=== PATIENT | female | born 1995 | race American Indian/Alaskan Native ===

== ENCOUNTER 2018-05-20 00:09 | Emergency (ER) | payer SELFPAY ==
[2018-05-20] MEDS ORDERED: MOTRIN ONE (03:11)
[2018-05-20 03:29] VITALS: BP 123/79
[2018-05-20] MEDS ORDERED: MOTRIN PO ONE (03:30)
[2018-05-20] MEDS ORDERED: BICILLIN L-A IM ONE (05:03)
--- NOTE | 2018-05-20 05:05 | Emergency Department Report ---
ED ENT HPI - General Chief complaint: Sore Throat Stated complaint: SORE THROAT,TONSIL SWOLLEN Time Seen by Provider: 05/20/18 04:14 Source: patient Mode of arrival: Ambulatory Limitations: No Limitations - History of Present Illness Initial comments: 23-year-old -[place] female comes in complaining of sore throat and painful to the right neck 4 days. Patient denies any fever or chills but she does report a little bit of nausea and headache. Patient reports that she is taking [id number] Tylenol Motrin aspirin without any relief. Patient denies any past medical history besides congenital heart surgery. MD complaint: tooth pain -: days(s) (4) Location: throat Severity: severe Severity scale (0 -10): 8 Quality: burning, stabbing Consistency: constant Improves with: none Worsens with: swallowing Associated Symptoms: sore throat - Related Data Previous Rx's Medication Instructions Recorded Last Taken Type Ibuprofen [Motrin 600 MG tab] 600 mg PO Q8H PRN #15 tablet 05/20/18 Unknown Rx Allergies Allergy/AdvReac Type Severity Reaction Status Date / Time No Known Allergies Allergy Verified 05/20/18 03:31 ED Dental HPI - General Chief complaint: Sore Throat Stated complaint: SORE THROAT,TONSIL SWOLLEN Time Seen by Provider: 05/20/18 04:14 Source: patient Mode of arrival: Ambulatory Limitations: No Limitations - Related Data Previous Rx's Medication Instructions Recorded Last Taken Type Ibuprofen [Motrin 600 MG tab] 600 mg PO Q8H PRN #15 tablet 05/20/18 Unknown Rx Allergies Allergy/AdvReac Type Severity Reaction Status Date / Time No Known Allergies Allergy Verified 05/20/18 03:31 ED Review of Systems ROS: Stated complaint: SORE THROAT,TONSIL SWOLLEN Other details as noted in HPI Constitutional: denies: chills, fever Eyes: denies: eye pain, eye discharge, vision change ENT: throat pain Respiratory: denies: cough, shortness of breath, wheezing Cardiovascular: denies: chest pain, palpitations Gastrointestinal: denies: abdominal pain, nausea, diarrhea Genitourinary: denies: urgency, dysuria, discharge Neurological: headache ED Past Medical Hx - Past Medical History Additional medical history: Congenital Heart Disease - Surgical History Additional Surgical History: Congenital Heart Surgery - Social History Smoking Status: Never Smoker Substance Use Type: None, Marijuana - Medications Home Medications: Home Medications Medication Instructions Recorded Confirmed Last Taken Type Ibuprofen [Motrin 600 MG tab] 600 mg PO Q8H PRN #15 tablet 05/20/18 Unknown Rx ED Physical Exam - General Limitations: No Limitations General appearance: alert, in no apparent distress - Head Head exam: Present: atraumatic, normocephalic - Eye Eye exam: Present: EOMI - Expanded ENT Exam Expanded Throat exam: Positive: tonsillar erythema, tonsillomegaly, tonsillar exudate - Neck Neck exam: Present: tenderness, full ROM, lymphadenopathy - Respiratory Respiratory exam: Present: normal lung sounds bilaterally. Absent: respiratory distress - Cardiovascular Cardiovascular Exam: Present: regular rate, normal rhythm. Absent: systolic murmur, diastolic murmur, rubs, gallop - GI/Abdominal GI/Abdominal exam: Present: soft, normal bowel sounds ED Course Vital Signs 05/20/18 03:12 Temperature 98.7 F Pulse Rate 84 Respiratory 16 Rate Blood Pressure 123/79 O2 Sat by Pulse 97 Oximetry ED Medical Decision Making - Medical Decision Making Patient's been evaluated by this provider fast track. Patient has been given ibuprofen for pain management. Patient sent off for rapid strep which came back positive for group A strep. Discharge patient on ibuprofen Critical care attestation.: If time is entered above; I have spent that time in minutes in the direct care of this critically ill patient, excluding procedure time. ED Disposition Clinical Impression: Strep pharyngitis Disposition: DC-01 TO HOME OR SELFCARE Is pt being admited?: No Does the pt Need Aspirin: No Condition: Stable Instructions: Strep Throat (ED) Additional Instructions: Please increase her fluid intake by 1-2 L of fluid. Please take pain medication as needed. If her symptoms persist or gets worse please follow up with her primary care provider. Prescriptions: Ibuprofen [Motrin 600 MG tab] 600 mg PO Q8H PRN #15 tablet PRN Reason: Pain Referrals: PRIMARY CARE, [Primary Care Provider] - 3-5 Days Forms: Work/School Release Form(ED)
== END 2018-05-20 05:32 | disposition home or self-care (01) ==
LOC: ED 00:09
DX: J02.0 Streptococcal pharyngitis (principal); F12.10 Cannabis abuse, uncomplicated; R11.0 Nausea
CPT/HCPCS: 87430; 96372; 99283; J0561

== ENCOUNTER 2019-01-22 08:06 | Emergency (ER) | payer SELFPAY ==
[2019-01-22] MEDS ORDERED: ZOFRAN IV ONE (09:05)
[2019-01-22] MEDS ORDERED: MORPHINE IV ONE (09:05)
[2019-01-22] MEDS ORDERED: TORADOL IV ONE (09:05)
--- NOTE | 2019-01-22 09:09 | Emergency Department Report ---
ED Abdominal Pain HPI - General Chief Complaint: Abdominal Pain Stated Complaint: HEADACHE/STOMACH PAIN Time Seen by Provider: 01/22/19 09:01 Source: patient Mode of arrival: Ambulatory Limitations: No Limitations - History of Present Illness Initial Comments: Matilde is a 24 yo female who presents with periumbilical RLQ pain for 1-2 weeks. Persistent pain with nausea. Decreased appetite. LMP December 31 2018. Complaint: abdominal pain -: Gradual, week(s) (1-2) Location: periumbilical Radiation: RLQ Severity scale (0 -10): 7 Quality: sharp Consistency: constant Improves With: nothing Worsens With: nothing Associated Symptoms: nausea - Related Data LMP Date: 12/31/18 Previous Rx's Medication Instructions Recorded Last Taken Type Ibuprofen [Motrin 600 MG tab] 600 mg PO Q8H PRN #15 tablet 08/28/18 Unknown Rx traMADol [Ultram 50 MG tab] 50 mg PO Q6HR PRN #12 tablet 08/28/18 Unknown Rx metroNIDAZOLE [Metronidazole] 500 mg PO BID #14 tablet 09/19/18 Unknown Rx Ibuprofen 800 mg PO QID PRN #15 tablet 01/22/19 Unknown Rx Promethazine [Phenergan TAB] 25 mg PO Q6HR PRN #10 tab 01/22/19 Unknown Rx Allergies Allergy/AdvReac Type Severity Reaction Status Date / Time No Known Allergies Allergy Verified 01/22/19 08:08 ED Review of Systems ROS: Stated complaint: HEADACHE/STOMACH PAIN Other details as noted in HPI Comment: All other systems reviewed and negative Constitutional: malaise. denies: fever Gastrointestinal: abdominal pain, nausea ED Past Medical Hx - Past Medical History Previous Medical History?: Yes Additional medical history: Congenital Heart Disease - Surgical History Past Surgical History?: Yes Additional Surgical History: Congenital Heart Surgery - Social History Smoking Status: Never Smoker Substance Use Type: Marijuana - Medications Home Medications: Home Medications Medication Instructions Recorded Confirmed Last Taken Type Ibuprofen [Motrin 600 MG tab] 600 mg PO Q8H PRN #15 tablet 08/28/18 Unknown Rx traMADol [Ultram 50 MG tab] 50 mg PO Q6HR PRN #12 tablet 08/28/18 Unknown Rx metroNIDAZOLE [Metronidazole] 500 mg PO BID #14 tablet 09/19/18 Unknown Rx Ibuprofen 800 mg PO QID PRN #15 tablet 01/22/19 Unknown Rx Promethazine [Phenergan TAB] 25 mg PO Q6HR PRN #10 tab 01/22/19 Unknown Rx ED Physical Exam - General Limitations: No Limitations General appearance: alert, in no apparent distress - Head Head exam: Present: atraumatic, normocephalic - Eye Eye exam: Present: normal appearance - ENT ENT exam: Present: mucous membranes moist - Neck Neck exam: Present: normal inspection, full ROM. Absent: meningismus - Respiratory Respiratory exam: Present: normal lung sounds bilaterally. Absent: respiratory distress, wheezes, rales, rhonchi - Cardiovascular Cardiovascular Exam: Present: regular rate, normal rhythm, normal heart sounds. Absent: systolic murmur, diastolic murmur, rubs, gallop - GI/Abdominal GI/Abdominal exam: Present: soft, tenderness (right lower quadrant), guarding (voluntary), normal bowel sounds. Absent: distended, rebound, rigid - Extremities Exam Extremities exam: Present: normal inspection - Back Exam Back exam: Present: normal inspection - Neurological Exam Neurological exam: Present: alert, oriented X3 - Psychiatric Psychiatric exam: Present: normal affect, normal mood - Skin Skin exam: Present: warm, dry, intact, normal color. Absent: rash ED Course Vital Signs 01/22/19 01/22/19 01/22/19 08:08 09:54 09:57 Temperature 98.2 F Pulse Rate 84 Respiratory 20 17 17 Rate Blood Pressure 159/103 O2 Sat by Pulse 98 Oximetry 01/22/19 09:59 Temperature Pulse Rate Respiratory 16 Rate Blood Pressure O2 Sat by Pulse Oximetry ED Medical Decision Making - Lab Data Result diagrams: 01/22/19 09:14 01/22/19 09:14 - Medical Decision Making Ms. Mckeon is a healthy female who presents with periumbilical and right lower quadrant abdominal pain. According to EMR, Pelvic and transvaginal ultrasound revealed 2 complex ovarian right-sided cyst. CT abdomen and pelvis negative for acute process. Referred to [facility]AL[facility] DIRECTOR. Refer to outside clinic. CBC chemistry within normal limits. Serum test negative ms. Mckeon is also concerned for persistent nausea. She has smoked marijuana daily for the past. I explained the risks and possibility of cannabinoid hyperemesis syndrome. Prescriptions provided for ibuprofen and promethazine Critical care attestation.: If time is entered above; I have spent that time in minutes in the direct care of this critically ill patient, excluding procedure time. ED Disposition Clinical Impression: Ovarian cyst, Abdominal pain Disposition: TO HOME OR SELFCARE Is pt being admited?: No Does the pt Need Aspirin: No Condition: Stable Instructions: Ovarian Cyst (ED), Abdominal Pain (ED) Prescriptions: Ibuprofen 800 mg PO QID PRN #15 tablet PRN Reason: Pain , Severe (7-10) Promethazine [Phenergan TAB] 25 mg PO Q6HR PRN #10 tab PRN Reason: Nausea Referrals: DOMINIC MATHEWS MD [Primary Care Provider] - 3-5 Days RUBY CONNOR MD [Staff Physician] - 3-5 Days Forms: Work/School Release Form(ED)
[2019-01-22 09:30] LABS: Hematocrit 39.8 % (30.3-42.9); Hemoglobin 13.5 gm/dl (10.1-14.3); Mean Corpuscular HGB Conc 34 % (30-34); Mean Corpuscular Volume 92 fl (79-97); Platelet Count 141 K/mm3 (140-440); Red Blood Count 4.35 M/mm3 (3.65-5.03); Red Cell Distribution Width 13.9 % (13.2-15.2)
[2019-01-22 10:02] LABS: Alanine Aminotransferase 11 units/L (7-56); Albumin 4.1 g/dL (3.9-5); BUN/Creatinine Ratio 22; Blood Urea Nitrogen 13 mg/dL (7-17); Calcium 8.9 mg/dL (8.4-10.2); Hemolysis Index 17
[2019-01-22 10:07] LABS: Bilirubin,Direct < 0.2 mg/dL (0-0.2)
[2019-01-22 10:50] LABS: Basophils % (Manual) 0 % (0.0-1.8); Total Cells Counted 100
[2019-01-22 10:51] LABS: Anisocytosis Few; Large Platelets Rare; Platelet Estimate Consistent w Auto; Poikilocytosis Few
--- NOTE | 2019-01-22 11:55 | Cat Scan Report ---
CT ABDOMEN PELVIS WITH CONTRAST: HISTORY: Periumbilical pain, right lower quadrant tenderness. COMPARISON: none. TECHNIQUE: Helical CT in 1.25mm intervals following IV contrast. Sagittal and coronal reconstructions. FINDINGS: Lung bases: The visualized lung bases are adequately aerated. Only the inferior half of the heart is included this exam but there appears to be dextrocardia. An epicardial lead is identified along the left side of the heart. Please correlate with the patient's history. Liver: The liver demonstrates a heterogeneous density with mild diffuse fatty change. There is a 1 cm focus of enhancement in the anterior left hepatic lobe on image 64, series 3. This area is isodense on the delayed images suggesting type I enhancement pattern of a cavernous hemangioma. Biliary system: Normal. Pancreas: Normal. Spleen: Normal. Kidneys/ureters/bladder: Normal. Adrenal glands: Normal. Aorta: Normal. Intestines: Within normal limits given no oral contrast was administered. Appendix: Normal. Pelvic viscera: A 2.5 cm peripherally enhancing cyst is identified in the right ovary. The uterus and left ovary are unremarkable. Ascites: Trace pelvic ascites which appears physiologic for a female patient. Adenopathy: None. Musculoskeletal: Normal. IMPRESSION: 2.5 cm right ovarian cyst. No evidence for acute appendicitis. Dextrocardia? Mild hepatic steatosis. Tiny cavernous hemangioma in the left hepatic lobe.
[2019-01-22 12:39] VITALS: BP 120/80
== END 2019-01-22 12:38 | disposition home or self-care (01) ==
LOC: ED 08:06
DX: N83.201 Unspecified ovarian cyst, right side (principal); F12.10 Cannabis abuse, uncomplicated
CPT/HCPCS: 36415; 74177; 80048; 80076; 83690; 84703; 85007; 85025; 96374; 96375; 99284; J1885; J2270; J2405; Q9967

== ENCOUNTER 2020-06-02 05:28 | Emergency (ER) | payer SELFPAY ==
[2020-06-02 06:42] LABS: Basophils % (Auto) 0.6 % (0.0-1.8); Eosinophils # (Auto) 0.3 K/mm3 (0.0-0.4); Eosinophils % (Auto) 5.2 % (0.0-4.3); Hematocrit 42.8 % (30.3-42.9); Lymphocytes # (Auto) 1.8 K/mm3 (1.2-5.4); Lymphocytes % (Auto) 33.5 % (13.4-35.0); Mean Corpuscular HGB Conc 33 % (30-34); Mean Corpuscular Volume 92 fl (79-97); Monocytes # (Auto) 0.4 K/mm3 (0.0-0.8); Monocytes % (Auto) 7.1 % (0.0-7.3); Platelet Count 175 K/mm3 (140-440); Red Blood Count 4.64 M/mm3 (3.65-5.03)
[2020-06-02 06:42] LABS: Bilirubin,Urine NEG (Negative); Blood,Urine LG (Negative); Color,Urine Yellow (Yellow); Mucus,Urine 3+ /HPF
[2020-06-02 06:43] LABS: Alanine Aminotransferase 10 units/L (7-56); Albumin 4.3 g/dL (3.9-5); BUN/Creatinine Ratio 15; Blood Urea Nitrogen 12 mg/dL (7-17); Calcium 9.2 mg/dL (8.4-10.2); Hemolysis Index 7
[2020-06-02 06:48] LABS: RBC,Urine > 182.0 /HPF (0.0-6.0)
[2020-06-02 06:50] LABS: HCG Qualitative,Urine Negative (Negative)
--- NOTE | 2020-06-02 10:44 | Emergency Department Report ---
ED Female HPI - General Chief complaint: Abdominal Pain Stated complaint: NAUSEA, ABDOMINAL PAIN Time Seen by Provider: 06/02/20 10:31 Source: patient Mode of arrival: Ambulatory Limitations: No Limitations - History of Present Illness Initial comments: 25-year-old -Citizen Of [place] female presents to the emergency room complaining of diffuse abdominal pain and nausea times a few weeks. Patient admits to urinary frequency and urgency. She was concerned that her menstrual period was light as she is only needing a panty liner. Patient denies any dysuria admits that she is drinking fluids such as water. She does complain of constipation at times. She admits that she smokes weed. Denies any fever or chills. MD Complaint: pelvic pain Onset/Timin -: week(s) Location: suprapubic Severity scale (0 -10): 6 Quality: sharp Consistency: intermittent Improves with: none Worsens with: none Are you Now?: No Associated Symptoms: nausea/vomiting (No vomiting), loss of appetite, other (Urinary frequency and urgency). denies: fever/chills - Related Data Sexually active: Yes : 0 Previous Rx's Medication Instructions Recorded Last Taken Type Ibuprofen [Motrin 600 MG tab] 600 mg PO Q8H PRN #15 tablet 08/28/18 Unknown Rx traMADoL [Ultram 50 MG tab] 50 mg PO Q6HR PRN #12 tablet 08/28/18 Unknown Rx metroNIDAZOLE [Metronidazole] 500 mg PO BID #14 tablet 09/19/18 Unknown Rx Ibuprofen [Ibuprofen 800] 800 mg PO QID PRN #15 tablet 01/22/19 Unknown Rx Promethazine [Phenergan] 25 mg PO Q6HR PRN #10 tab 01/22/19 Unknown Rx Acetaminophen [Acetaminophen TAB] 1,000 mg PO Q6HR PRN #30 tablet 10/12/19 Unknown Rx Fluticasone [Flonase] 1 spray NS QDAY #1 bottle 10/12/19 Unknown Rx Loratadine 10 mg PO DAILY #30 tablet 10/12/19 Unknown Rx Nitrofurantoin [place]/M-Cryst 100 mg PO Q12HR 7 Days #14 capsule 06/02/20 Unknown Rx [Macrobid CAP] Allergies Allergy/AdvReac Type Severity Reaction Status Date / Time No Known Allergies Allergy Verified 10/12/19 14:41 ED Review of Systems ROS: Stated complaint: NAUSEA, ABDOMINAL PAIN Other details as noted in HPI Comment: All other systems reviewed and negative ED Past Medical Hx - Past Medical History Previous Medical History?: Yes Additional medical history: Congenital Heart Disease - Surgical History Past Surgical History?: Yes Additional Surgical History: Congenital Heart Surgery - Social History Smoking Status: Never Smoker Substance Use Type: Marijuana - Medications Home Medications: Home Medications Medication Instructions Recorded Confirmed Last Taken Type Ibuprofen [Motrin 600 MG tab] 600 mg PO Q8H PRN #15 tablet 08/28/18 Unknown Rx traMADoL [Ultram 50 MG tab] 50 mg PO Q6HR PRN #12 tablet 08/28/18 Unknown Rx metroNIDAZOLE [Metronidazole] 500 mg PO BID #14 tablet 09/19/18 Unknown Rx Ibuprofen [Ibuprofen 800] 800 mg PO QID PRN #15 tablet 01/22/19 Unknown Rx Promethazine [Phenergan] 25 mg PO Q6HR PRN #10 tab 01/22/19 Unknown Rx Acetaminophen [Acetaminophen TAB] 1,000 mg PO Q6HR PRN #30 tablet 10/12/19 Unknown Rx Fluticasone [Flonase] 1 spray NS QDAY #1 bottle 10/12/19 Unknown Rx Loratadine 10 mg PO DAILY #30 tablet 10/12/19 Unknown Rx Nitrofurantoin [place]/M-Cryst 100 mg PO Q12HR 7 Days #14 capsule 06/02/20 Unknown Rx [Macrobid CAP] ED Physical Exam - General Limitations: No Limitations General appearance: alert, in no apparent distress, other (Nontoxic in appearance) - Head Head exam: Present: atraumatic, normocephalic - Eye Eye exam: Present: normal appearance - ENT ENT exam: Present: mucous membranes moist - Neck Neck exam: Present: normal inspection - Respiratory Respiratory exam: Present: normal lung sounds bilaterally. Absent: respiratory distress - Cardiovascular Cardiovascular Exam: Present: regular rate, normal rhythm. Absent: systolic murmur, diastolic murmur, rubs, gallop - GI/Abdominal GI/Abdominal exam: Present: soft, normal bowel sounds. Absent: distended, tenderness - Extremities Exam Extremities exam: Present: normal inspection, full ROM - Back Exam Back exam: Present: normal inspection - Neurological Exam Neurological exam: Present: alert, oriented X3, normal gait - Psychiatric Psychiatric exam: Present: normal affect, normal mood - Skin Skin exam: Present: warm, dry, intact, normal color. Absent: rash ED Medical Decision Making - Lab Data Result diagrams: 06/02/20 05:39 06/02/20 05:39 - Medical Decision Making 25-year-old -Citizen Of [place] female presents to the emergency room complaining of diffuse abdominal pain and nausea times a few weeks. Patient admits to urin phil frequency and urgency. She was concerned that her menstrual period was light as she is only needing a panty liner. Patient denies any dysuria admits that she is drinking fluids such as water. She does complain of constipation at times. She admits that she smokes weed. Denies any fever or chills. Patient's urine shows that she has a urinary tract infection. Patient is normal appearance nontoxic. Lying comfortably. We will treat her with Macrobid discussed with her that smoking also can cause abdominal pain with nausea. Recommend to increase her fluid intake and to complete all her antibiotics. Critical care attestation.: If time is entered above; I have spent that time in minutes in the direct care of this critically ill patient, excluding procedure time. ED Disposition Clinical Impression: UTI (urinary tract infection) Disposition: DC-01 TO HOME OR SELFCARE Is pt being admited?: No Does the pt Need Aspirin: No Condition: Stable Instructions: Abdominal Pain (ED) Additional Instructions: Please complete antibiotics as prescribed. Follow-up with a [facility] [employer] or primary care provider. Tylenol or ibuprofen as needed for pain management. Prescriptions: Nitrofurantoin [place]/M-Cryst [Macrobid CAP] 100 mg PO Q12HR 7 Days #14 capsule Referrals: PRIMARY CAREMD [Primary Care Provider] - 3-5 Days [facility] [Provider Group] - 3-5 Days Forms: Work/School Release Form(ED)
[2020-06-02 10:59] VITALS: BP 128/96
== END 2020-06-02 10:56 | disposition home or self-care (01) ==
LOC: ED 05:28
DX: N39.0 Urinary tract infection, site not specified (principal); F12.10 Cannabis abuse, uncomplicated; Z79.899 Other long term (current) drug therapy
CPT/HCPCS: 36415; 80053; 81001; 81025; 85025; 87086; 99283

== ENCOUNTER 2020-10-21 20:33 | Emergency (ER) | payer SELFPAY ==
[2020-10-21] MEDS ORDERED: LIDOCAINE-MPF (1%) 10 MG/1 ML VIAL 5 ML INFILTRATI ONE (21:00)
[2020-10-21 21:01] VITALS: BP 101/71
[2020-10-21] MEDS ORDERED: traMADol 50 MG TAB PO ONE (21:01)
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
[2020-10-21] MEDS ORDERED: ACETAMINOPHEN 500 MG TAB PO ONE (21:47)
== END 2020-10-21 22:23 | disposition home or self-care (01) ==
LOC: ED 20:33
DX: S46.912A Strain of unspecified muscle, fascia and tendon at shoulder and upper arm level, left arm, initial encounter (principal); S46.911A Strain of unspecified muscle, fascia and tendon at shoulder and upper arm level, right arm, initial encounter; S09.90XA Unspecified injury of head, initial encounter; F17.200 Nicotine dependence, unspecified, uncomplicated; Z79.899 Other long term (current) drug therapy; V49.59XA Passenger injured in collision with other motor vehicles in traffic accident, initial encounter; Y93.89 Activity, other specified; Y92.488 Other paved roadways as the place of occurrence of the external cause; Y99.8 Other external cause status
CPT/HCPCS: 99282

== ENCOUNTER 2021-03-26 17:34 | Emergency (ER) | payer SELFPAY ==
[2021-03-26 18:01] VITALS: BP 116/81
== END 2021-03-27 07:00 | disposition left against medical advice (07) ==
LOC: ED 17:34
DX: R51.9 Headache, unspecified (principal); Z53.21 Procedure and treatment not carried out due to patient leaving prior to being seen by health care provider

== ENCOUNTER 2021-03-27 17:08 | Emergency (ER) | payer SELFPAY ==
[2021-03-27 19:29] VITALS: BP 121/79
--- NOTE | 2021-03-27 19:37 | Emergency Department Report ---
Chief Complaint: Abdominal Pain Stated Complaint: STOMACH PAIN/HEADACHE/SOB/PANIC ATTACK Time Seen by Provider: 03/27/21 19:31 - HPI History of Present Illness: 26-year-old -[place] female patient without significant past medical history presents with complaints of intermittent upper abdominal discomfort, burning, and nausea for the past 2 years. Patient states her symptoms have been worsening over the past few days after drinking heavy amount of tequila. She denies any vomiting, diarrhea, melena/hematochezia, fever/chills/sweats, chest pain, or shortness of breath. She states her pain is currently mild and rates it as a 2/10 in severity. She describes it as gnawing and burning. Patient states her symptoms improved with refraining from spicy foods. She states that she has been seen in the past for the same issue, however she has never followed up with a GI specialist. - Exam Vital Signs: Vital Signs 03/27/21 19:28 Temperature 97.8 F Pulse Rate 94 H Respiratory 16 Rate Blood Pressure 121/79 O2 Sat by Pulse 95 Oximetry MSE screening note: Focused history and physical exam performed. Due to findings the following was ordered: ED Medical Decision Making - Medical Decision Making History and physical appear to be consistent with GERD/gastritis. Recommend follow-up with GI for further evaluation. Patient to try OTC Pepcid twice daily. Her vitals are normal, she is well-appearing, she is stable for discharge home. Discussed signs and symptoms that should prompt immediate return to the emergency department in detail patient verbalized understanding. ED Disposition for MSE Clinical Impression: Gastritis Disposition: Z-07 MED SCREENING EXAM-LEFT Is pt being admited?: No Condition: Stable Instructions: Gastritis, Adult, Food Choices for Gastroesophageal Reflux Disease, Adult, Gastroesophageal Reflux Disease, Adult, Abdominal Pain (ED) Additional Instructions: Pepcid (famotidine) Omeprazole Referrals: [facility] [Provider Group] - 3-5 Days [facility] [Provider Group] - 3-5 Days Forms: Work/School Release Form(ED) ED Physical Exam - General Limitations: No Limitations General appearance: alert, in no apparent distress - Head Head exam: Present: atraumatic, normocephalic - Eye Eye exam: Present: normal appearance. Absent: scleral icterus - Respiratory Respiratory exam: Present: normal lung sounds bilaterally. Absent: respiratory distress - Cardiovascular Cardiovascular Exam: Present: regular rate, normal rhythm. Absent: systolic murmur, diastolic murmur, rubs, gallop - GI/Abdominal GI/Abdominal exam: Present: soft, normal bowel sounds. Absent: distended, tenderness, guarding, rebound, rigid - Neurological Exam Neurological exam: Present: alert, oriented X3 - Psychiatric Psychiatric exam: Present: normal affect, normal mood - Skin Skin exam: Present: warm, dry, intact, normal color. Absent: rash, cyanosis, diaphoretic ED Review of Systems ROS: Stated complaint: STOMACH PAIN/HEADACHE/SOB/PANIC ATTACK Other details as noted in HPI Constitutional: denies: chills, diaphoresis, fever, malaise, weakness Respiratory: denies: cough Cardiovascular: denies: chest pain Gastrointestinal: abdominal pain, nausea. denies: vomiting, diarrhea, constipation, hematemesis, melena, hematochezia Skin: denies: change in color Hematological/Lymphatic: denies: easy bruising
== END 2021-03-27 19:40 | disposition left against medical advice (07) ==
LOC: ED 17:08
DX: K29.70 Gastritis, unspecified, without bleeding (principal); Z53.21 Procedure and treatment not carried out due to patient leaving prior to being seen by health care provider

== ENCOUNTER 2021-07-02 09:47 | Emergency (ER) | payer SELFPAY ==
--- NOTE | 2021-07-02 10:37 | Emergency Department Report ---
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 Patient states that her symptoms started around 1 AM this morning. She states that she vomited multiple times this morning. Emesis was mainly liquid and food. She denies any hematemesis or coffee-ground emesis. She also had multiple episodes of diarrhea this morning but the last time she had diarrhea was 3 AM. She denies any hematochezia, melena mucus in her diarrhea. She reports upper abdominal pain which has since improved since it started. She denies any associated fever. She denies any UTI symptoms or abnormal vaginal symptoms. She denies any recent antibiotic use, recent travel, ill contacts or obvious bad food intake. Her last menstrual cycle was 2 weeks ago. She is not currently on control. She smokes cigarettes and marijuana but denies any other illicit drugs. She denies alcohol abuse. She denies any history of abdominal surgeries. MD complaint: nausea, vomiting, diarrhea, abdominal pain -: This morning (about 1 am this morning ) - Related Data Previous Rx's Medication Instructions Recorded Last Taken Type Ibuprofen [Motrin 600 MG tab] 600 mg PO Q8H PRN #15 tablet 08/28/18 Unknown Rx Ibuprofen [Ibuprofen 800] 800 mg PO QID PRN #15 tablet 01/22/19 Unknown Rx Acetaminophen [Acetaminophen TAB] 1,000 mg PO Q6HR PRN #30 tablet 10/21/20 Unknown Rx methOCARBAMOL [Robaxin TAB] 750 mg PO Q8H PRN #30 tablet 10/21/20 Unknown Rx Famotidine [Pepcid] 20 mg PO BID #30 tablet 07/02/21 Unknown Rx Hyoscyamine Subl [Levsin Sl 0.125 0.125 mg SL Q6HR PRN #20 tab 07/02/21 Unknown Rx TAB] Ondansetron [Zofran Odt] 4 mg PO Q8HR PRN #15 tab.rapdis 07/02/21 Unknown Rx Allergies Allergy/AdvReac Type Severity Reaction Status Date / Time No Known Allergies Allergy Verified 10/12/19 14:41 ED Review of Systems ROS: Stated complaint: VOMITING,DIAHRREA, STOMACH PAIN Other details as noted in HPI Comment: All other systems reviewed and negative Constitutional: denies: chills, fever Eyes: denies: eye pain, eye discharge, vision change ENT: denies: ear pain, throat pain Respiratory: denies: cough, shortness of breath, SOB with exertion, SOB at rest, wheezing Cardiovascular: denies: chest pain, palpitations, dyspnea on exertion, edema, syncope, paroxysmal nocturnal dyspnea Gastrointestinal: abdominal pain, nausea, vomiting, diarrhea. denies: constipation, hematemesis, melena, hematochezia Genitourinary: denies: urgency, dysuria, frequency, hematuria, discharge, abnormal menses, dyspareunia Musculoskeletal: denies: back pain, joint swelling, arthralgia, myalgia Skin: denies: rash, lesions, change in color, pruritus Neurological: denies: headache, weakness, numbness, paresthesias, confusion, abnormal gait, vertigo Psychiatric: denies: anxiety, depression, auditory hallucinations, visual hallucinations, homicidal thoughts, suicidal thoughts Hematological/Lymphatic: denies: easy bleeding, easy bruising ED Past Medical Hx - Past Medical History Hx GERD: Yes Additional medical history: Congenital Heart Disease - Surgical History Additional Surgical History: Congenital Heart Surgery - Social History Smoking Status: Never Smoker - Medications Home Medications: Home Medications Medication Instructions Recorded Confirmed Last Taken Type Ibuprofen [Motrin 600 MG tab] 600 mg PO Q8H PRN #15 tablet 08/28/18 Unknown Rx Ibuprofen [Ibuprofen 800] 800 mg PO QID PRN #15 tablet 01/22/19 Unknown Rx Acetaminophen [Acetaminophen TAB] 1,000 mg PO Q6HR PRN #30 tablet 10/21/20 Unknown Rx methOCARBAMOL [Robaxin TAB] 750 mg PO Q8H PRN #30 tablet 10/21/20 Unknown Rx Famotidine [Pepcid] 20 mg PO BID #30 tablet 07/02/21 Unknown Rx Hyoscyamine Subl [Levsin Sl 0.125 0.125 mg SL Q6HR PRN #20 tab 07/02/21 Unknown Rx TAB] Ondansetron [Zofran Odt] 4 mg PO Q8HR PRN #15 tab.rapdis 07/02/21 Unknown Rx ED Physical Exam - General General appearance: alert, in no apparent distress - Head Head exam: Present: atraumatic, normocephalic, normal inspection - Eye Eye exam: Present: normal appearance, PERRL, EOMI Pupils: Present: normal accommodation - ENT ENT exam: Present: normal exam, mucous membranes moist, TM's normal bilaterally - Neck Neck exam: Present: normal inspection, full ROM - Respiratory Respiratory exam: Present: normal lung sounds bilaterally. Absent: respiratory distress, wheezes, rales, rhonchi - Cardiovascular Cardiovascular Exam: Present: regular rate, normal rhythm, normal heart sounds - GI/Abdominal GI/Abdominal exam: Present: soft, tenderness (Epigastric ), guarding (mild, epigastric ). Absent: distended - Neurological Exam Neurological exam: Present: alert, oriented X3, CN II-XII intact, normal gait - Psychiatric Psychiatric exam: Present: normal affect, normal mood - Skin Skin exam: Present: intact ED Course Vital Signs 07/02/21 07/02/21 10:49 12:56 Temperature 98.7 F Pulse Rate 81 80 Respiratory 16 18 Rate Blood Pressure 107/79 105/71 [Left] O2 Sat by Pulse 95 95 Oximetry ED Medical Decision Making - Lab Data Result diagrams: 07/02/21 11:30 07/02/21 11:30 - Medical Decision Making 1241: Patient reports feeling much better after IV fluids, and IV meds. She was able to tolerate p.o. fluids without any vomiting. Repeat abdominal exam shows soft nontender abdomen. Patient currently not toxic or ill-appearing. She is neurologically intact. Suspect gastroenteritis at this time. All labs reviewed and unremarkable. Her exam, diagnostic testing and current condition do not suggest acute appendicitis, bowel obstruction, acute cholecystitis, bowel perforation, , severe diverticulitis, sepsis or other significant pathology to warrant further testing, continued ED treatment, admission or surgical evaluation at this point. Discussed suspected diagnosis and treatment plan with patient. She expressed understanding of all instructions and agree with plan. Patient was stable at time of discharge. Critical care attestation.: If time is entered above; I have spent that time in minutes in the direct care of this critically ill patient, excluding procedure time. ED Disposition Clinical Impression: Gastroenteritis, Epigastric pain Disposition: HOME / SELF CARE / HOMELESS Is pt being admited?: No Does the pt Need Aspirin: No Condition: Stable Instructions: Viral Gastroenteritis, Adult, [id number], Abdominal Pain, A dult, [id number], [place] Diet Additional Instructions: Recommend that you take the Pepcid and the Zofran and the levsin as prescribed. Recommend that you do a bland diet for the rest of the day. Recommend that you continue drinking lots of fluids. Follow-up closely with your primary care doctor. Return to the ER if your symptoms changes or worsens in any way. Prescriptions: Hyoscyamine Subl [Levsin Sl 0.125 TAB] 0.125 mg SL Q6HR PRN #20 tab PRN Reason: Abdominal pain Famotidine [Pepcid] 20 mg PO BID #30 tablet Ondansetron [Zofran Odt] 4 mg PO Q8HR PRN #15 tab.rapdis PRN Reason: Nausea vomiting Referrals: PRIMARY CARE,MD [Primary Care Provider] - 3-5 Days [facility] [Provider Group] - 3-5 Days Forms: Work/School Release Form(ED) Time of Disposition: 12:44
[2021-07-02] MEDS ORDERED: SODIUM CHLORIDE 0.9% 1000 ML 1,000 ML IV ONE (10:40)
[2021-07-02] MEDS ORDERED: ONDANSETRON 4 MG/2 ML INJ IV ONE (10:40)
[2021-07-02] MEDS ORDERED: HYOSCYAMINE SUBL 0.125 MG TAB SL ONE (10:41)
[2021-07-02] MEDS ORDERED: FAMOTIDINE 20 MG TAB PO ONE (10:41)
[2021-07-02 11:42] LABS: Bacteria,Urine 1+ /HPF (Negative); Bilirubin,Urine NEG (Negative); Blood,Urine NEG (Negative); Color,Urine Yellow (Yellow); Mucus,Urine 1+ /HPF; Protein,Urine <15 mg/dL mg/dL (Negative)
[2021-07-02 11:47] LABS: Basophils % (Auto) 0.4 % (0.0-1.8); Eosinophils # (Auto) 0.2 K/mm3 (0.0-0.4); Eosinophils % (Auto) 2.7 % (0.0-4.3); Hematocrit 40.9 % (30.3-42.9); Hemoglobin 13.6 gm/dl (10.1-14.3); Lymphocytes # (Auto) 1.3 K/mm3 (1.2-5.4); Lymphocytes % (Auto) 23.3 % (13.4-35.0); Mean Corpuscular HGB Conc 33 % (30-34); Mean Corpuscular Volume 91 fl (79-97); Monocytes # (Auto) 0.5 K/mm3 (0.0-0.8); Monocytes % (Auto) 9.1 % (0.0-7.3); Platelet Count 161 K/mm3 (140-440); Red Cell Distribution Width 13.5 % (13.2-15.2)
[2021-07-02 11:51] LABS: HCG Qualitative,Urine Negative (Negative)
[2021-07-02 12:01] LABS: Alanine Aminotransferase 12 units/L (7-56); Albumin 4.2 g/dL (3.9-5); Blood Urea Nitrogen 15 mg/dL (7-17); Calcium 8.7 mg/dL (8.4-10.2); Hemolysis Index 4
[2021-07-02 12:12] LABS: BUN/Creatinine Ratio 25
[2021-07-02 12:56] VITALS: BP 105/71
== END 2021-07-02 12:56 | disposition home or self-care (01) ==
LOC: ED 09:47
DX: K52.9 Noninfective gastroenteritis and colitis, unspecified (principal); K21.9 Gastro-esophageal reflux disease without esophagitis
CPT/HCPCS: 36415; 80053; 81001; 81025; 83690; 85025; 96361; 96374; 99283; J2405; J7030

== ENCOUNTER 2021-07-25 00:07 | Emergency (ER) | payer SELFPAY ==
[2021-07-25 00:29] VITALS: BP 118/84
--- NOTE | 2021-07-25 01:00 | Emergency Department Report ---
ED General Adult HPI - General Chief complaint: Headache Stated complaint: HEADACHES PUI?: No Source: patient Mode of arrival: Ambulatory Limitations: No Limitations - History of Present Illness Initial comments: Patient is a 26-year-old -[place] female with a history of congenital heart disease and GERD who presents to the ED with complaint of acute onset persistent nasal and sinus congestion, frontal sinus pressure and headache, sore throat for the last 2 days. Patient states that she has not been able to sleep because of worsening frontal sinus pressure and headache as well as sore throat. Patient denies fever, chills, nausea, vomiting, chest pain, shortness of breath, cough, dizziness, syncope, abdominal pain, diarrhea, dizziness or syncope. MD Complaint: Sore throat, frontal headache; nasal and sinus congestion -: Sudden, days(s) (2) Location: head, mouth Radiation: non-radiation Severity scale (0 -10): 5 Quality: aching Consistency: constant Improves with: none Worsens with: none Associated Symptoms: denies other symptoms, headaches. denies: confusion, chest pain, cough, diaphoresis, fever/chills, loss of appetite, malaise, nausea/vomiting, rash, seizure, shortness of breath, syncope, weakness Treatments Prior to Arrival: none - Related Data Previous Rx's Medication Instructions Recorded Last Taken Type Ibuprofen [Motrin 600 MG tab] 600 mg PO Q8H PRN #15 tablet 08/28/18 Unknown Rx Ibuprofen [Ibuprofen 800] 800 mg PO QID PRN #15 tablet 01/22/19 Unknown Rx Acetaminophen [Acetaminophen TAB] 1,000 mg PO Q6HR PRN #30 tablet 10/21/20 Unknown Rx methOCARBAMOL [Robaxin TAB] 750 mg PO Q8H PRN #30 tablet 10/21/20 Unknown Rx Famotidine [Pepcid] 20 mg PO BID #30 tablet 07/02/21 Unknown Rx Hyoscyamine Subl [Levsin Sl 0.125 0.125 mg SL Q6HR PRN #20 tab 07/02/21 Unknown Rx TAB] Ondansetron [Zofran Odt] 4 mg PO Q8HR PRN #15 tab.rapdis 07/02/21 Unknown Rx Amoxicillin [Amoxicillin TAB] 875 mg PO Q12H #20 tablet 07/25/21 Unknown Rx Cetirizine HCl [Zyrtec 10mg tab] 10 mg PO DAILY #30 tablet 07/25/21 Unknown Rx Ibuprofen [Motrin] 600 mg PO Q8H PRN #30 tablet 07/25/21 Unknown Rx Lidocaine Viscous 2% 10 ml PO Q6H PRN #100 ml 07/25/21 Unknown Rx Ondansetron [Zofran Odt] 4 mg PO Q6HR PRN #15 tab.rapdis 07/25/21 Unknown Rx Allergies Allergy/AdvReac Type Severity Reaction Status Date / Time No Known Allergies Allergy Verified 10/12/19 14:41 ED Review of Systems ROS: Stated complaint: HEADACHES Other details as noted in HPI Constitutional: denies: chills, fever Eyes: denies: eye pain, eye discharge, vision change ENT: throat pain, congestion, other (Frontal sinus pressure and headache). denies: ear pain Respiratory: denies: cough, shortness of breath, wheezing Cardiovascular: denies: chest pain, palpitations Endocrine: no symptoms reported Gastrointestinal: denies: abdominal pain, nausea, diarrhea Genitourinary: denies: urgency, dysuria, discharge Musculoskeletal: denies: back pain, joint swelling, arthralgia Skin: denies: rash, lesions Neurological: headache (Frontal sinus pressure and headache). denies: weakness, paresthesias Psychiatric: denies: anxiety, depression Hematological/Lymphatic: denies: easy bleeding, easy bruising ED Past Medical Hx - Past Medical History Previous Medical History?: Yes Hx GERD: Yes Additional medical history: Congenital Heart Disease - Surgical History Past Surgical History?: Yes Additional Surgical History: Congenital Heart Surgery - Social History Smoking Status: Current Some Day Smoker Substance Use Type: Marijuana - Medications Home Medications: Home Medications Medication Instructions Recorded Confirmed Last Taken Type Ibuprofen [Motrin 600 MG tab] 600 mg PO Q8H PRN #15 tablet 08/28/18 Unknown Rx Ibuprofen [Ibuprofen 800] 800 mg PO QID PRN #15 tablet 01/22/19 Unknown Rx Acetaminophen [Acetaminophen TAB] 1,000 mg PO Q6HR PRN #30 tablet 10/21/20 Unknown Rx methOCARBAMOL [Robaxin TAB] 750 mg PO Q8H PRN #30 tablet 10/21/20 Unknown Rx Famotidine [Pepcid] 20 mg PO BID #30 tablet 07/02/21 Unknown Rx Hyoscyamine Subl [Levsin Sl 0.125 0.125 mg SL Q6HR PRN #20 tab 07/02/21 Unknown Rx TAB] Ondansetron [Zofran Odt] 4 mg PO Q8HR PRN #15 tab.rapdis 07/02/21 Unknown Rx Amoxicillin [Amoxicillin TAB] 875 mg PO Q12H #20 tablet 07/25/21 Unknown Rx Cetirizine HCl [Zyrtec 10mg tab] 10 mg PO DAILY #30 tablet 07/25/21 Unknown Rx Ibuprofen [Motrin] 600 mg PO Q8H PRN #30 tablet 07/25/21 Unknown Rx Lidocaine Viscous 2% 10 ml PO Q6H PRN #100 ml 07/25/21 Unknown Rx Ondansetron [Zofran Odt] 4 mg PO Q6HR PRN #15 tab.rapdis 07/25/21 Unknown Rx ED Physical Exam - General Limitations: No Limitations General appearance: alert, in no apparent distress - Head Head exam: Present: atraumatic, normocephalic, normal inspection - Eye Eye exam: Present: normal appearance, PERRL, EOMI Pupils: Present: normal accommodation - ENT ENT exam: Present: mucous membranes moist, normal external ear exam, other (Grossly congested nasal passages; bilaterally erythematous swollen tonsils and oropharynx; palpable tenderness on frontal sinus ) - Neck Neck exam: Present: normal inspection, full ROM - Respiratory Respiratory exam: Present: normal lung sounds bilaterally. Absent: respiratory distress, wheezes, rales, rhonchi, stridor, chest wall tenderness, accessory muscle use, decreased breath sounds - Cardiovascular Cardiovascular Exam: Present: regular rate, normal rhythm, normal heart sounds. Absent: systolic murmur, diastolic murmur, rubs, gallop - GI/Abdominal GI/Abdominal exam: Present: soft, normal bowel sounds. Absent: tenderness, guarding, rebound, hyperactive bowel sounds, hypoactive bowel sounds, organomegaly - Extremities Exam Extremities exam: Present: normal inspection, full ROM, normal capillary refill - Back Exam Back exam: Present: normal inspection, full ROM. Absent: CVA tenderness (L), muscle spasm, paraspinal tenderness, vertebral tenderness - Neurological Exam Neurological exam: Present: alert, oriented X3, CN II-XII intact, normal gait, reflexes normal - Psychiatric Psychiatric exam: Present: normal affect, normal mood - Skin Skin exam: Present: warm, dry, intact, normal color. Absent: rash ED Course Vital Signs 07/25/21 00:28 Temperature 97.5 F L Pulse Rate 82 Respiratory 18 Rate Blood Pressure 118/84 O2 Sat by Pulse 96 Oximetry ED Medical Decision Making - Medical Decision Making This is a 26-year-old -[place] female with a history of congenital heart disease and GERD who presents to the ED with complaint of acute onset persistent nasal and sinus congestion, frontal sinus pressure and headache, sore throat for the last 2 days. Patient states that she has not been able to sleep because of worsening frontal sinus pressure and headache as well as sore throat. In the ED, patient is alert and oriented x3 and is not in any distress. Patient is hemodynamically stable. Patient was discharged home on medications based on the physical exam findings as well as the patient's history. Patient was therefore advised to return to the ED immediately if symptoms get worse, otherwise follow- up with her primary care physician in 7 to 10 days for reevaluation. - Differential Diagnosis Sinusitis; sinus headache; URI; tonsillitis; pharyngitis Critical care attestation.: If time is entered above; I have spent that time in minutes in the direct care of this critically ill patient, excluding procedure time. ED Disposition Clinical Impression: Acute upper respiratory infection, Acute bacterial tonsillitis, Sinus headache Acute frontal sinusitis Qualifiers: Recurrence: non-recurrent Qualified Code(s): J01.10 - Acute frontal sinusitis, unspecified Disposition: 01 HOME / SELF CARE / HOMELESS Is pt being admited?: No Does the pt Need Aspirin: No Condition: Stable Instructions: Sinusitis, Adult, [id number], Upper Respiratory Infection, Adult, [id number], Tonsillitis, [id number], Sinus Headache, [id number] Additional Instructions: Symptoms are likely due to frontal sinusitis and tonsillitis. Therefore take medication with food, drink plenty of fluids and follow-up with your primary care physician in 7 to 10 days for reevaluation. Return to the ED immediately if symptoms get worse. Prescriptions: Amoxicillin [Amoxicillin TAB] 875 mg PO Q12H #20 tablet Lidocaine Viscous 2% 10 ml PO Q6H PRN #100 ml PRN Reason: Sore Throat Ibuprofen [Motrin] 600 mg PO Q8H PRN #30 tablet PRN Reason: Pain Ondansetron [Zofran Odt] 4 mg PO Q6HR PRN #15 tab.rapdis PRN Reason: Nausea Cetirizine HCl [Zyrtec 10mg tab] 10 mg PO DAILY #30 tablet Referrals: [facility] [Provider Group] - 7-10 days Forms: Work/School Release Form(ED) Time of Disposition: 01:02 Print Language: WALLISIAN
== END 2021-07-25 01:08 | disposition home or self-care (01) ==
LOC: ED 00:07
DX: J06.9 Acute upper respiratory infection, unspecified (principal); J03.90 Acute tonsillitis, unspecified; B96.89 Other specified bacterial agents as the cause of diseases classified elsewhere; K21.9 Gastro-esophageal reflux disease without esophagitis; F17.200 Nicotine dependence, unspecified, uncomplicated; F12.90 Cannabis use, unspecified, uncomplicated; Z79.899 Other long term (current) drug therapy
CPT/HCPCS: 99282

== ENCOUNTER 2021-08-17 10:39 | Emergency (ER) | payer SELFPAY ==
[2021-08-17 10:44] VITALS: BP 134/97
--- NOTE | 2021-08-17 10:49 | Event Note ---
ED Screening Note ED Screening Note: congenital heart sternotomy x 3 "not enough oxygen" hx cf- off lasix and coumadin for 2 y does not see heart md now co dull chest pain tearful admits to recent thc This initial assessment/diagnostic orders/clinical plan/treatment(s) is/are subject to change based on patients health status, clinical progression and re- assessment by fellow clinical providers in the ED. Further treatment and workup at subsequent clinical providers discretion. Patient/guardian urged not to elope from the ED as their condition may be serious if not clinically assessed and managed. Initial orders include: ro hf
[2021-08-17 11:15] LABS: Basophils % (Auto) 0.7 % (0.0-1.8); Eosinophils # (Auto) 0.2 K/mm3 (0.0-0.4); Eosinophils % (Auto) 2.8 % (0.0-4.3); Hematocrit 38.9 % (30.3-42.9); Hemoglobin 12.8 gm/dl (10.1-14.3); Lymphocytes # (Auto) 1.4 K/mm3 (1.2-5.4); Lymphocytes % (Auto) 18.7 % (13.4-35.0); Mean Corpuscular HGB Conc 33 % (30-34); Mean Corpuscular Volume 91 fl (79-97); Monocytes # (Auto) 0.5 K/mm3 (0.0-0.8); Monocytes % (Auto) 6.2 % (0.0-7.3); Platelet Count 181 K/mm3 (140-440); Red Blood Count 4.28 M/mm3 (3.65-5.03); Red Cell Distribution Width 14.2 % (13.2-15.2)
[2021-08-17 11:30] LABS: INR 0.98 (0.87-1.13)
[2021-08-17 11:31] LABS: Partial Thromboplastin Time 26.9 Sec. (24.2-36.6)
--- NOTE | 2021-08-17 11:45 | Emergency Department Report ---
ED Chest Pain HPI - General Chief Complaint: Chest Pain Stated Complaint: CHEST PAIN Time Seen by Provider: 08/17/21 10:48 Source: patient Mode of arrival: Ambulatory Limitations: No Limitations - History of Present Illness Initial Comments: 26-year-old -[place] female presents to the emergency department with a complaint of midsternal chest pain that started just prior to presentation while at work. She denies any shortness of breath, lower extremity swelling, nausea, vomiting, back pain, diaphoresis. She did not take anything for symptoms prior to presentation and says that the chest discomfort is currently 5 out of 10 in intensity. No known aggravating or alleviating factors. 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 No recent travel or sick contacts at home. Patient is a marijuana smoker. She denies any tobacco or any other illicit drug use. - Related Data Previous Rx's Medication Instructions Recorded Last Taken Type Ibuprofen [Motrin 600 MG tab] 600 mg PO Q8H PRN #15 tablet 08/28/18 Unknown Rx Ibuprofen [Ibuprofen 800] 800 mg PO QID PRN #15 tablet 01/22/19 Unknown Rx Acetaminophen [Acetaminophen TAB] 1,000 mg PO Q6HR PRN #30 tablet 10/21/20 Unknown Rx methOCARBAMOL [Robaxin TAB] 750 mg PO Q8H PRN #30 tablet 10/21/20 Unknown Rx Famotidine [Pepcid] 20 mg PO BID #30 tablet 07/02/21 Unknown Rx Hyoscyamine Subl [Levsin Sl 0.125 0.125 mg SL Q6HR PRN #20 tab 07/02/21 Unknown Rx TAB] Ondansetron [Zofran Odt] 4 mg PO Q8HR PRN #15 tab.rapdis 07/02/21 Unknown Rx Amoxicillin [Amoxicillin TAB] 875 mg PO Q12H #20 tablet 07/25/21 Unknown Rx Cetirizine HCl [Zyrtec 10mg tab] 10 mg PO DAILY #30 tablet 07/25/21 Unknown Rx Ibuprofen [Motrin] 600 mg PO Q8H PRN #30 tablet 07/25/21 Unknown Rx Lidocaine Viscous 2% 10 ml PO Q6H PRN #100 ml 07/25/21 Unknown Rx Ondansetron [Zofran Odt] 4 mg PO Q6HR PRN #15 tab.rapdis 07/25/21 Unknown Rx Albuterol Mdi (or & Nicu Only) 2 puff IH QID PRN #8.5 gram 08/17/21 Unknown Rx [ProAir HFA Inhaler] Ibuprofen [Motrin 600 MG tab] 600 mg PO Q8H PRN #20 tablet 08/17/21 Unknown Rx Allergies Allergy/AdvReac Type Severity Reaction Status Date / Time No Known Allergies Allergy Verified 10/12/19 14:41 Heart Score - HEART Score History: Slightly suspicious EKG: Normal Age: < 45 Risk factors: 1-2 risk factors Troponin: < normal limit HEART Score: 1 - EKG Read Time Time EKG Completed: 10:50 EKG Read Time: 10:55 ED Review of Systems ROS: Stated complaint: CHEST PAIN Other details as noted in HPI Comment: All other systems reviewed and negative Constitutional: denies: chills, fever Eyes: denies: eye pain, vision change ENT: denies: ear pain, throat pain Respiratory: denies: cough, shortness of breath Cardiovascular: chest pain. denies: palpitations, edema Gastrointestinal: denies: abdominal pain, vomiting Genitourinary: denies: dysuria, discharge Musculoskeletal: denies: back pain, arthralgia Skin: denies: rash, lesions Neurological: denies: headache, weakness ED Past Medical Hx - Past Medical History Previous Medical History?: Yes Hx GERD: Yes Additional medical history: Congenital Heart Disease - Surgical History Past Surgical History?: Yes Additional Surgical History: Congenital Heart Surgery - Social History Smoking Status: Current Some Day Smoker Substance Use Type: Marijuana - Medications Home Medications: Home Medications Medication Instructions Recorded Confirmed Last Taken Type Ibuprofen [Motrin 600 MG tab] 600 mg PO Q8H PRN #15 tablet 08/28/18 Unknown Rx Ibuprofen [Ibuprofen 800] 800 mg PO QID PRN #15 tablet 01/22/19 Unknown Rx Acetaminophen [Acetaminophen TAB] 1,000 mg PO Q6HR PRN #30 tablet 10/21/20 Unknown Rx methOCARBAMOL [Robaxin TAB] 750 mg PO Q8H PRN #30 tablet 10/21/20 Unknown Rx Famotidine [Pepcid] 20 mg PO BID #30 tablet 07/02/21 Unknown Rx Hyoscyamine Subl [Levsin Sl 0.125 0.125 mg SL Q6HR PRN #20 tab 07/02/21 Unknown Rx TAB] Ondansetron [Zofran Odt] 4 mg PO Q8HR PRN #15 tab.rapdis 07/02/21 Unknown Rx Amoxicillin [Amoxicillin TAB] 875 mg PO Q12H #20 tablet 07/25/21 Unknown Rx Cetirizine HCl [Zyrtec 10mg tab] 10 mg PO DAILY #30 tablet 07/25/21 Unknown Rx Ibuprofen [Motrin] 600 mg PO Q8H PRN #30 tablet 07/25/21 Unknown Rx Lidocaine Viscous 2% 10 ml PO Q6H PRN #100 ml 07/25/21 Unknown Rx Ondansetron [Zofran Odt] 4 mg PO Q6HR PRN #15 tab.rapdis 07/25/21 Unknown Rx Albuterol Mdi (or & Nicu Only) 2 puff IH QID PRN #8.5 gram 08/17/21 Unknown Rx [ProAir HFA Inhaler] Ibuprofen [Motrin 600 MG tab] 600 mg PO Q8H PRN #20 tablet 08/17/21 Unknown Rx ED Physical Exam - General Limitations: No Limitations - Other Other exam information: GENERAL: The patient is well-developed well-nourished. HENT: Normocephalic. Atraumatic. Patient has moist mucous membranes. EYES: Extraocular motions are intact. NECK: Supple. Trachea is midline. CHEST/LUNGS: Clear to auscultation. There is no respiratory distress noted. HEART/CARDIOVASCULAR: Regular. There is no tachycardia. There is no murmur. ABDOMEN: Abdomen is soft, nontender. Patient has normal bowel sounds. SKIN: Skin is warm and dry. NEURO: The patient is awake, alert, and oriented. The patient is cooperative. The patient has no focal neurologic deficits. Normal speech. MUSCULOSKELETAL: There is no tenderness or deformity. There is no limitation range of motion. ED Course Vital Signs 08/17/21 08/17/21 10:41 11:22 Temperature 98.3 F Pulse Rate 105 H Respiratory 14 Rate Blood Pressure 134/97 [Right] O2 Sat by Pulse 100 100 Oximetry SADE score - Sade Score Age > 65: (0) No Aspirin use within the Past 7 Days: (0) No 3 or more CAD Risk Factors: (0) No 2 or more Angina events in past 24 hrs: (1) Yes Known CAD with more than 50% Stenosis: (0) No Elevated Cardiac Markers: (0) No ST Deviation Greater than 0.5mm: (0) No SADE Score: 1 ED Medical Decision Making - Lab Data Result diagrams: 08/17/21 11:07 08/17/21 11:07 Lab Results 08/17/21 08/17/21 08/17/21 Range/Units 11:07 11:07 11:07 WBC 7.4 (4.5-11.0) K/mm3 RBC 4.28 (3.65-5.03) M/mm3 Hgb 12.8 (10.1-14.3) gm/dl Hct 38.9 (30.3-42.9) % MCV 91 (79-97) fl MCH 30 (28-32) pg MCHC 33 (30-34) % RDW 14.2 (13.2-15.2) % Plt Count 181 (140-440) K/mm3 Lymph % (Auto) 18.7 (13.4-35.0) % [place] % (Auto) 6.2 (0.0-7.3) % Eos % (Auto) 2.8 (0.0-4.3) % Baso % (Auto) 0.7 (0.0-1.8) % Lymph # (Auto) 1.4 (1.2-5.4) K/mm3 [place] # (Auto) 0.5 (0.0-0.8) K/mm3 Eos # (Auto) 0.2 (0.0-0.4) K/mm3 Baso # (Auto) 0.0 (0.0-0.1) K/mm3 Seg Neutrophils % 71.6 H (40.0-70.0) % Seg Neutrophils # 5.3 (1.8-7.7) K/mm3 PT 14.1 (12.2-14.9) Sec. INR 0.98 (0.87-1.13) APTT 26.9 (24.2-36.6) Sec. Sodium 138 (137-145) mmol/L Potassium 3.8 (3.6-5.0) mmol/L Chloride 102.3 (98-107) mmol/L Carbon Dioxide 21 L (22-30) mmol/L Anion Gap 19 mmol/L BUN 13 (7-17) mg/dL Creatinine 0.6 (0.6-1.2) mg/dL Estimated GFR > 60 ml/min BUN/Creatinine Ratio 22 % Glucose 98 (65-100) mg/dL Calcium 9.2 (8.4-10.2) mg/dL Total Bilirubin 1.00 (0.1-1.2) mg/dL AST 15 (5-40) units/L ALT 11 (7-56) units/L Alkaline Phosphatase 101 (35-129) units/L Troponin T < 0.010 (0.00-0.029) ng/mL NT-Pro-B Natriuret Pep 44.02 (0-450) pg/mL Total Protein 8.2 (6.3-8.2) g/dL Albumin 4.7 (3.9-5) g/dL Albumin/Globulin Ratio 1.3 % TSH (0.270-4.200) mlU/mL HCG, Qual (Negative) Urine Color (Yellow) Urine Turbidity (Clear) Urine pH (5.0-7.0) Ur Specific [place] (1.003-1.030) Urine Protein (Negative) mg/dL Urine Glucose (UA) (Negative) mg/dL Urine Ketones (Negative) mg/dL Urine Blood (Negative) Urine Nitrite (Negative) Urine Bilirubin (Negative) Urine Urobilinogen (<2.0) mg/dL Ur Leukocyte Esterase (Negative) Urine WBC (Auto) (0.0-6.0) /HPF Urine RBC (Auto) (0.0-6.0) /HPF U Epithel Cells (Auto) (0-13.0) /HPF Urine Bacteria (Auto) (Negative) /HPF Urine Mucus /HPF Urine Opiates Screen Urine Methadone Screen Ur Barbiturates Screen Ur Phencyclidine Scrn Ur Amphetamines Screen U Benzodiazepines Scrn Urine Cocaine Screen Drugs of Abuse Note 08/17/21 08/17/21 08/17/21 Range/Units 11:07 11:07 Unknown WBC (4.5-11.0) K/mm3 RBC (3.65-5.03) M/mm3 Hgb (10.1-14.3) gm/dl Hct (30.3-42.9) % MCV (79-97) fl MCH (28-32) pg MCHC (30-34) % RDW (13.2-15.2) % Plt Count (140-440) K/mm3 Lymph % (Auto) (13.4-35.0) % [place] % (Auto) (0.0-7.3) % Eos % (Auto) (0.0-4.3) % Baso % (Auto) (0.0-1.8) % Lymph # (Auto) (1.2-5.4) K/mm3 [place] # (Auto) (0.0-0.8) K/mm3 Eos # (Auto) (0.0-0.4) K/mm3 Baso # (Auto) (0.0-0.1) K/mm3 Seg Neutrophils % (40.0-70.0) % Seg Neutrophils # (1.8-7.7) K/mm3 PT (12.2-14.9) Sec. INR (0.87-1.13) APTT (24.2-36.6) Sec. Sodium (137-145) mmol/L Potassium (3.6-5.0) mmol/L Chloride (98-107) mmol/L Carbon Dioxide (22-30) mmol/L Anion Gap mmol/L BUN (7-17) mg/dL Creatinine (0.6-1.2) mg/dL Estimated GFR ml/min BUN/Creatinine Ratio % Glucose (65-100) mg/dL Calcium (8.4-10.2) mg/dL Total Bilirubin (0.1-1.2) mg/dL AST (5-40) units/L ALT (7-56) units/L Alkaline Phosphatase (35-129) units/L Troponin T (0.00-0.029) ng/mL NT-Pro-B Natriuret Pep (0-450) pg/mL Total Protein (6.3-8.2) g/dL Albumin (3.9-5) g/dL Albumin/Globulin Ratio % TSH 1.560 (0.270-4.200) mlU/mL HCG, Qual Negative (Negative) Urine Color Yellow (Yellow) Urine Turbidity Cloudy (Clear) Urine pH 6.0 (5.0-7.0) Ur Specific [place] 1.021 (1.003-1.030) Urine Protein 30 mg/dl (Negative) mg/dL Urine Glucose (UA) Neg (Negative) mg/dL Urine Ketones 20 (Negative) mg/dL Urine Blood Neg (Negative) Urine Nitrite Neg (Negative) Urine Bilirubin Neg (Negative) Urine Urobilinogen 2.0 (<2.0) mg/dL Ur Leukocyte Esterase Neg (Negative) Urine WBC (Auto) 61.0 H (0.0-6.0) /HPF Urine RBC (Auto) 16.0 (0.0-6.0) /HPF U Epithel Cells (Auto) 69.0 H (0-13.0) /HPF Urine Bacteria (Auto) 1+ (Negative) /HPF Urine Mucus 3+ /HPF Urine Opiates Screen Urine Methadone Screen Ur Barbiturates Screen Ur Phencyclidine Scrn Ur Amphetamines Screen U Benzodiazepines Scrn Urine Cocaine Screen Drugs of Abuse Note 08/17/21 Range/Units Unknown WBC (4.5-11.0) K/mm3 RBC (3.65-5.03) M/mm3 Hgb (10.1-14.3) gm/dl Hct (30.3-42.9) % MCV (79-97) fl MCH (28-32) pg MCHC (30-34) % RDW (13.2-15.2) % Plt Count (140-440) K/mm3 Lymph % (Auto) (13.4-35.0) % [place] % (Auto) (0.0-7.3) % Eos % (Auto) (0.0-4.3) % Baso % (Auto) (0.0-1.8) % Lymph # (Auto) (1.2-5.4) K/mm3 [place] # (Auto) (0.0-0.8) K/mm3 Eos # (Auto) (0.0-0.4) K/mm3 Baso # (Auto) (0.0-0.1) K/mm3 Seg Neutrophils % (40.0-70.0) % Seg Neutrophils # (1.8-7.7) K/mm3 PT (12.2-14.9) Sec. INR (0.87-1.13) APTT (24.2-36.6) Sec. Sodium (137-145) mmol/L Potassium (3.6-5.0) mmol/L Chloride (98-107) mmol/L Carbon Dioxide (22-30) mmol/L Anion Gap mmol/L BUN (7-17) mg/dL Creatinine (0.6-1.2) mg/dL Estimated GFR ml/min BUN/Creatinine Ratio % Glucose (65-100) mg/dL Calcium (8.4-10.2) mg/dL Total Bilirubin (0.1-1.2) mg/dL AST (5-40) units/L ALT (7-56) units/L Alkaline Phosphatase (35-129) units/L Troponin T (0.00-0.029) ng/mL NT-Pro-B Natriuret Pep (0-450) pg/mL Total Protein (6.3-8.2) g/dL Albumin (3.9-5) g/dL Albumin/Globulin Ratio % TSH (0.270-4.200) mlU/mL HCG, Qual (Negative) Urine Color (Yellow) Urine Turbidity (Clear) Urine pH (5.0-7.0) Ur Specific [place] (1.003-1.030) Urine Protein (Negative) mg/dL Urine Glucose (UA) (Negative) mg/dL Urine Ketones (Negative) mg/dL Urine Blood (Negative) Urine Nitrite (Negative) Urine Bilirubin (Negative) Urine Urobilinogen (<2.0) mg/dL Ur Leukocyte Esterase (Negative) Urine WBC (Auto) (0.0-6.0) /HPF Urine RBC (Auto) (0.0-6.0) /HPF U Epithel Cells (Auto) (0-13.0) /HPF Urine Bacteria (Auto) (Negative) /HPF Urine Mucus /HPF Urine Opiates Screen Negative Urine Methadone Screen Negative Ur Barbiturates Screen Negative Ur Phencyclidine Scrn Negative Ur Amphetamines Screen Negative U Benzodiazepines Scrn Negative Urine Cocaine Screen Negative Drugs of Abuse Note Disclamer - EKG Data -: EKG Interpreted by Me EKG shows normal: sinus rhythm, axis, intervals, QRS complexes, ST-T waves (Nonspecific T waves) Rate: normal - EKG Data When compared to previous EKG there are: previous EKG unavailable Interpretation: other (Sinus rhythm at 98 bpm, normal axis, normal intervals, nonspecific T waves. No ST elevation [place]) - Radiology Data Radiology results: image reviewed interpreted by me: Chest x-ray does not show any acute process. There are no pleural effusions, obvious pneumonia and there is no pneumothorax. Dextrocardia. No widened mediastinum. - Medical Decision Making This patient presents to the emergency department with complaints of some midsternal chest pain that started just prior to presentation while at work. On examination the patient has normal heart and lungs to auscultation. She does not appear in any respiratory or acute distress. EKG does not have any morphology consistent with ST elevation myocardial infarction or any dysrhythmia. Chest x-ray does not show any pneumonia, pleural effusions, pneumothorax, widened mediastinum, or any other acute process. Patient's labs have been unremarkable including CBC, metabolic panel and a negative troponin. She was given a dose of Toradol and a DuoNeb breathing treatment and upon reevaluation says she is feeling improved and the chest pain has resolved. She is low on the heart and SADE score. The patient is low on the [place] score criteria and negative on the pulmonary embolism rule out criteria. For all these reasons patient appears safe for discharge home at this time. Her contact information has been sent over to the [facility] and [facility] [place], and someone from their office should be contacting her shortly for close outpatient follow[facility]up [facility]. Critical Care Time: No Critical care attestation.: If time is entered above; I have spent that time in minutes in the direct care of this critically ill patient, excluding procedure time. ED Disposition Clinical Impression: Atypical chest pain Disposition: 01 HOME / SELF CARE / HOMELESS Is pt being admited?: No Condition: Stable Instructions: Nonspecific Chest Pain, Adult Additional Instructions: Please follow-up with a primary care physician in the next few days. I have given you a referral for a local primary care physician, Dr. Escoto, and a primary care clinic, [facility]. I am sending your contact information over to the [facility] [place], and someone from their office should be contacting her shortly for close outpatient follow-up. Just in case, I am giving a referral for one of their vacuum extractor operator, Dr. Morocho. Return to the emergency department with any worsening of your symptoms, new or concerning symptoms not addressed during this current emergency department visit, or with any acute distress. Prescriptions: Ibuprofen [Motrin 600 MG tab] 600 mg PO Q8H PRN #20 tablet PRN Reason: Pain Albuterol Mdi (or & Nicu Only) [ProAir HFA Inhaler] 2 puff IH QID PRN #8.5 gram PRN Reason: Shortness Of Breath Referrals: CANDY MOROCHO MD [Staff Physician] - 3-5 Days BAM ESCOTO MD [Staff Physician] - 3-5 Days [facility] [Provider Group] - 3-5 Days Time of Disposition: 14:39
--- NOTE | 2021-08-17 12:07 | XRay Report ---
CHEST 2 VIEWS INDICATION / CLINICAL INFORMATION: Chest Pain. COMPARISON: None available. FINDINGS: SUPPORT DEVICES: None. HEART / MEDIASTINUM: Possible dextrocardia. Epicardial wire is noted without mechanical device. LUNGS / PLEURA: No significant pulmonary or pleural abnormality. No pneumothorax. ADDITIONAL FINDINGS: No significant additional findings. IMPRESSION: 1. No acute findings. Signer Name: Rafael Layne DO Signed: 08/17/2021 12:02 PM Workstation Name: [id number]
[2021-08-17 13:06] LABS: Alanine Aminotransferase 11 units/L (7-56); Albumin 4.7 g/dL (3.9-5); Blood Urea Nitrogen 13 mg/dL (7-17); Calcium 9.2 mg/dL (8.4-10.2); Hemolysis Index 22
[2021-08-17 13:07] LABS: BUN/Creatinine Ratio 22
[2021-08-17] MEDS ORDERED: KETOROLAC 30 MG/1 ML INJ IV ONE (13:15)
[2021-08-17] MEDS ORDERED: IPRATROPIUM/ALBUTEROL SULFATE 3 ML AMPUL.NEB IH ONE (13:15)
[2021-08-17 14:50] LABS: Bacteria,Urine 1+ /HPF (Negative); Bilirubin,Urine NEG (Negative); Blood,Urine NEG (Negative); Color,Urine Yellow (Yellow); Mucus,Urine 3+ /HPF
[2021-08-17 15:24] LABS: Amphetamine Screen,Urine Negative; Benzodiazepines Screen,Urine Negative; Cocaine Screen,Urine Negative; Methadone Screen,Urine Negative; Opiate Screen,Urine Negative
[2021-08-17 15:40] LABS: Cannabinoid Screen,Urine Positive
--- NOTE | 2021-08-18 09:08 | Electrocardiograph Report ---
[facility] Test Date: 2021-08-17 Test Time: 10:50:21 Pat Name: HARDIK CASTILLO Department: Room: Gender: F Rn Quality: BRII : 1995 Requested By: GURDEEP MORIN Order Number: [id number] Reading MD: Noe Morocho Measurements Intervals [place] Rate: 98 P: 83 NC: 194 QRS: 92 QRSD: 90 T: 164 QT: 345 QTc: 441 Interpretive Statements Sinus rhythm Nonspecific repol abnormality, diffuse leads No previous ECG available for comparison Electronically Signed On 08-18-2021 9:07:32 EDT by Noe Morocho
== END 2021-08-17 15:18 | disposition home or self-care (01) ==
LOC: ED 10:39
DX: R07.89 Other chest pain (principal); Q24.9 Congenital malformation of heart, unspecified; F12.90 Cannabis use, unspecified, uncomplicated; K21.9 Gastro-esophageal reflux disease without esophagitis; Z98.890 Other specified postprocedural states
CPT/HCPCS: 36415; 71046; 80053; 80307; 81001; 83880; 84443; 84484; 84703; 85025; 85610; 85730; 87086; 93005; 96374; 99284; J1885

== ENCOUNTER 2021-09-18 16:38 | Emergency (ER) | payer SELFPAY ==
[2021-09-18] MEDS ORDERED: ACETAMINOPHEN 325 MG TAB PO ONE (17:00)
[2021-09-18] MEDS ORDERED: SODIUM CHLORIDE 0.9% 1000 ML 1,000 ML IV ONE (17:00)
[2021-09-18] MEDS ORDERED: ONDANSETRON 4 MG/2 ML INJ IV ONE (17:00)
[2021-09-18 17:29] LABS: Basophils % (Auto) 0.5 % (0.0-1.8); Eosinophils # (Auto) 0.1 K/mm3 (0.0-0.4); Eosinophils % (Auto) 0.8 % (0.0-4.3); Hematocrit 45.5 % (30.3-42.9); Hemoglobin 14.7 gm/dl (10.1-14.3); Lymphocytes # (Auto) 0.8 K/mm3 (1.2-5.4); Lymphocytes % (Auto) 11.3 % (13.4-35.0); Mean Corpuscular HGB Conc 32 % (30-34); Mean Corpuscular Volume 89 fl (79-97); Monocytes # (Auto) 0.5 K/mm3 (0.0-0.8); Monocytes % (Auto) 7.6 % (0.0-7.3); Platelet Count 183 K/mm3 (140-440); Red Cell Distribution Width 13.8 % (13.2-15.2)
[2021-09-18 17:52] LABS: Bilirubin,Urine SM (Negative); Blood,Urine NEG (Negative); Color,Urine Amber (Yellow); Mucus,Urine 3+ /HPF
[2021-09-18 17:52] LABS: Alanine Aminotransferase 12 units/L (7-56); Albumin 4.5 g/dL (3.9-5); Blood Urea Nitrogen 10 mg/dL (7-17); Calcium 9.4 mg/dL (8.4-10.2); Hemolysis Index 43
[2021-09-18 17:53] LABS: BUN/Creatinine Ratio 14
[2021-09-18 17:55] LABS: INR 1.05 (0.87-1.13)
[2021-09-18 17:56] LABS: Partial Thromboplastin Time 27.8 Sec. (24.2-36.6)
[2021-09-18 18:07] LABS: Ictotest,Urine Negative (Negative)
--- NOTE | 2021-09-18 18:20 | XRay Report ---
CHEST 2 VIEWS INDICATION: fever, hx of congenital heart defect. COMPARISON: 08/17/2021 FINDINGS: Support devices: None. Heart: Dextrocardia again noted. Lungs/Pleura: No acute air space or interstitial disease. No significant pleural effusion. IMPRESSION: Stable chest. Signer Name: Juan Tolbert MD Signed: 09/18/2021 6:15 PM Workstation Name: [id number]
--- NOTE | 2021-09-18 18:32 | Emergency Department Report ---
- General Chief Complaint: Dental/Oral Stated Complaint: ORAL BLEEDING Time Seen by Provider: 09/18/21 16:49 Source: patient Mode of arrival: Ambulatory Limitations: No Limitations - History of Present Illness Initial Comments: Patient is a 26-year-old female presents emergency room complaints of "flulike symptoms" that began yesterday. She has associated generalized body aches, fever, chills, urinary frequency. She denies any cough, shortness of breath, chest pain, abdominal pain, vomiting, diarrhea, sore throat, ear pain. Past medical history of congenital heart defect and dextrocardia. No allergies to medications. Patient states that she was also having some gum bleeding after flossing. - Related Data Previous Rx's Medication Instructions Recorded Last Taken Type Ibuprofen [Motrin 600 MG tab] 600 mg PO Q8H PRN #15 tablet 08/28/18 Unknown Rx Ibuprofen [Ibuprofen 800] 800 mg PO QID PRN #15 tablet 01/22/19 Unknown Rx Acetaminophen [Acetaminophen TAB] 1,000 mg PO Q6HR PRN #30 tablet 10/21/20 Unknown Rx methOCARBAMOL [Robaxin TAB] 750 mg PO Q8H PRN #30 tablet 10/21/20 Unknown Rx Famotidine [Pepcid] 20 mg PO BID #30 tablet 07/02/21 Unknown Rx Hyoscyamine Subl [Levsin Sl 0.125 0.125 mg SL Q6HR PRN #20 tab 07/02/21 Unknown Rx TAB] Ondansetron [Zofran Odt] 4 mg PO Q8HR PRN #15 tab.rapdis 07/02/21 Unknown Rx Amoxicillin [Amoxicillin TAB] 875 mg PO Q12H #20 tablet 07/25/21 Unknown Rx Cetirizine HCl [Zyrtec 10mg tab] 10 mg PO DAILY #30 tablet 07/25/21 Unknown Rx Ibuprofen [Motrin] 600 mg PO Q8H PRN #30 tablet 07/25/21 Unknown Rx Lidocaine Viscous 2% 10 ml PO Q6H PRN #100 ml 07/25/21 Unknown Rx Ondansetron [Zofran Odt] 4 mg PO Q6HR PRN #15 tab.rapdis 07/25/21 Unknown Rx Albuterol Mdi (or & Nicu Only) 2 puff IH QID PRN #8.5 gram 08/17/21 Unknown Rx [ProAir HFA Inhaler] Ibuprofen [Motrin 600 MG tab] 600 mg PO Q8H PRN #20 tablet 08/17/21 Unknown Rx Acetaminophen [Tylenol] 650 mg PO Q8HR PRN #20 capsule 09/18/21 Unknown Rx Chlorhexidine Mouthwash [Peridex] 15 ml MM BID #1 bottle 09/18/21 Unknown Rx Allergies Allergy/AdvReac Type Severity Reaction Status Date / Time No Known Allergies Allergy Verified 10/12/19 14:41 ED Review of Systems ROS: Stated complaint: ORAL BLEEDING Other details as noted in HPI Comment: All other systems reviewed and negative ED Past Medical Hx - Past Medical History Hx GERD: Yes Additional medical history: Congenital Heart Disease - Surgical History Additional Surgical History: Congenital Heart Surgery - Social History Smoking Status: Current Some Day Smoker Substance Use Type: Marijuana - Medications Home Medications: Home Medications Medication Instructions Recorded Confirmed Last Taken Type Ibuprofen [Motrin 600 MG tab] 600 mg PO Q8H PRN #15 tablet 08/28/18 Unknown Rx Ibuprofen [Ibuprofen 800] 800 mg PO QID PRN #15 tablet 01/22/19 Unknown Rx Acetaminophen [Acetaminophen TAB] 1,000 mg PO Q6HR PRN #30 tablet 10/21/20 Unknown Rx methOCARBAMOL [Robaxin TAB] 750 mg PO Q8H PRN #30 tablet 10/21/20 Unknown Rx Famotidine [Pepcid] 20 mg PO BID #30 tablet 07/02/21 Unknown Rx Hyoscyamine Subl [Levsin Sl 0.125 0.125 mg SL Q6HR PRN #20 tab 07/02/21 Unknown Rx TAB] Ondansetron [Zofran Odt] 4 mg PO Q8HR PRN #15 tab.rapdis 07/02/21 Unknown Rx Amoxicillin [Amoxicillin TAB] 875 mg PO Q12H #20 tablet 07/25/21 Unknown Rx Cetirizine HCl [Zyrtec 10mg tab] 10 mg PO DAILY #30 tablet 07/25/21 Unknown Rx Ibuprofen [Motrin] 600 mg PO Q8H PRN #30 tablet 07/25/21 Unknown Rx Lidocaine Viscous 2% 10 ml PO Q6H PRN #100 ml 07/25/21 Unknown Rx Ondansetron [Zofran Odt] 4 mg PO Q6HR PRN #15 tab.rapdis 07/25/21 Unknown Rx Albuterol Mdi (or & Nicu Only) 2 puff IH QID PRN #8.5 gram 08/17/21 Unknown Rx [ProAir HFA Inhaler] Ibuprofen [Motrin 600 MG tab] 600 mg PO Q8H PRN #20 tablet 08/17/21 Unknown Rx Acetaminophen [Tylenol] 650 mg PO Q8HR PRN #20 capsule 09/18/21 Unknown Rx Chlorhexidine Mouthwash [Peridex] 15 ml MM BID #1 bottle 09/18/21 Unknown Rx ED Physical Exam - General Limitations: No Limitations General appearance: alert, in no apparent distress - Head Head exam: Present: atraumatic, normocephalic - Eye Eye exam: Present: normal appearance - ENT ENT exam: Present: normal orophraynx, mucous membranes moist, TM's normal bilaterally, normal external ear exam, other (small abrasion between the frontal teeth) - Neck Neck exam: Present: full ROM. Absent: meningismus - Respiratory Respiratory exam: Present: normal lung sounds bilaterally. Absent: respiratory distress, wheezes, rales, rhonchi, stridor, chest wall tenderness, accessory muscle use, decreased breath sounds, prolonged expiratory - Cardiovascular Cardiovascular Exam: Present: normal rhythm, tachycardia - Neurological Exam Neurological exam: Present: alert, oriented X3 - Psychiatric Psychiatric exam: Present: normal affect, normal mood - Skin Skin exam: Present: warm, dry, intact ED Course Vital Signs 09/18/21 09/18/21 16:46 19:38 Temperature 101.8 F H 98.3 F Pulse Rate 121 H 64 Respiratory 20 17 Rate Blood Pressure 127/88 118/73 [Right] O2 Sat by Pulse 99 97 Oximetry ED Medical Decision Making - Lab Data Result diagrams: 09/18/21 17:03 09/18/21 17:03 Lab Results 09/18/21 09/18/21 09/18/21 Range/Units 17:03 17:03 17:03 WBC 7.1 (4.5-11.0) K/mm3 RBC 5.10 H (3.65-5.03) M/mm3 Hgb 14.7 H (10.1-14.3) gm/dl Hct 45.5 H (30.3-42.9) % MCV 89 (79-97) fl MCH 29 (28-32) pg MCHC 32 (30-34) % RDW 13.8 (13.2-15.2) % Plt Count 183 (140-440) K/mm3 Lymph % (Auto) 11.3 L (13.4-35.0) % D[place] % (Auto) 7.6 H (0.0-7.3) % Eos % (Auto) 0.8 (0.0-4.3) % Baso % (Auto) 0.5 (0.0-1.8) % Lymph # (Auto) 0.8 L (1.2-5.4) K/mm3 Dundy # (Auto) 0.5 (0.0-0.8) K/mm3 Eos # (Auto) 0.1 (0.0-0.4) K/mm3 Baso # (Auto) 0.0 (0.0-0.1) K/mm3 Seg Neutrophils % 79.8 H (40.0-70.0) % Seg Neutrophils # 5.6 (1.8-7.7) K/mm3 PT 14.8 (12.2-14.9) Sec. INR 1.05 (0.87-1.13) APTT 27.8 (24.2-36.6) Sec. Sodium 134 L (137-145) mmol/L Potassium 3.8 (3.6-5.0) mmol/L Chloride 98.2 (98-107) mmol/L Carbon Dioxide 19 L (22-30) mmol/L Anion Gap 21 mmol/L BUN 10 (7-17) mg/dL Creatinine 0.7 (0.6-1.2) mg/dL Estimated GFR > 60 ml/min BUN/Creatinine Ratio 14 % Glucose 100 (65-100) mg/dL Calcium 9.4 (8.4-10.2) mg/dL Total Bilirubin 1.50 H (0.1-1.2) mg/dL AST 17 (5-40) units/L ALT 12 (7-56) units/L Alkaline Phosphatase 105 (35-129) units/L Total Protein 8.4 H (6.3-8.2) g/dL Albumin 4.5 (3.9-5) g/dL Albumin/Globulin Ratio 1.2 % HCG, Qual (Negative) Urine Color (Yellow) Urine Turbidity (Clear) Urine pH (5.0-7.0) Ur Specific [place] (1.003-1.030) Urine Protein (Negative) mg/dL Urine Glucose (UA) (Negative) mg/dL Urine Ketones (Negative) mg/dL Urine Blood (Negative) Urine Nitrite (Negative) Urine Bilirubin (Negative) Urine Ictotest (Negative) Urine Urobilinogen (<2.0) mg/dL Ur Leukocyte Esterase (Negative) Urine WBC (Auto) (0.0-6.0) /HPF Urine RBC (Auto) (0.0-6.0) /HPF U Epithel Cells (Auto) (0-13.0) /HPF Urine Mucus /HPF Influenza A (Rapid) (Negative) Influenza B (Rapid) (Negative) 09/18/21 09/18/21 09/18/21 Range/Units 17:03 17:09 Unknown WBC (4.5-11.0) K/mm3 RBC (3.65-5.03) M/mm3 Hgb (10.1-14.3) gm/dl Hct (30.3-42.9) % MCV (79-97) fl MCH (28-32) pg MCHC (30-34) % RDW (13.2-15.2) % Plt Count (140-440) K/mm3 Lymph % (Auto) (13.4-35.0) % Dundy % (Auto) (0.0-7.3) % Eos % (Auto) (0.0-4.3) % Baso % (Auto) (0.0-1.8) % Lymph # (Auto) (1.2-5.4) K/mm3 Dundy # (Auto) (0.0-0.8) K/mm3 Eos # (Auto) (0.0-0.4) K/mm3 Baso # (Auto) (0.0-0.1) K/mm3 Seg Neutrophils % (40.0-70.0) % Seg Neutrophils # (1.8-7.7) K/mm3 PT (12.2-14.9) Sec. INR (0.87-1.13) APTT (24.2-36.6) Sec. Sodium (137-145) mmol/L Potassium (3.6-5.0) mmol/L Chloride (98-107) mmol/L Carbon Dioxide (22-30) mmol/L Anion Gap mmol/L BUN (7-17) mg/dL Creatinine (0.6-1.2) mg/dL Estimated GFR ml/min BUN/Creatinine Ratio % Glucose (65-100) mg/dL Calcium (8.4-10.2) mg/dL Total Bilirubin (0.1-1.2) mg/dL AST (5-40) units/L ALT (7-56) units/L Alkaline Phosphatase (35-129) units/L Total Protein (6.3-8.2) g/dL Albumin (3.9-5) g/dL Albumin/Globulin Ratio % HCG, Qual Negative (Negative) Urine Color Lupe (Yellow) Urine Turbidity Slightly-cloudy (Clear) Urine pH 6.0 (5.0-7.0) Ur Specific [place] 1.025 (1.003-1.030) Urine Protein 30 mg/dl (Negative) mg/dL Urine Glucose (UA) Neg (Negative) mg/dL Urine Ketones 80 (Negative) mg/dL Urine Blood Neg (Negative) Urine Nitrite Neg (Negative) Urine Bilirubin Sm (Negative) Urine Ictotest Negative (Negative) Urine Urobilinogen 4.0 (<2.0) mg/dL Ur Leukocyte Esterase Tr (Negative) Urine WBC (Auto) 2.0 (0.0-6.0) /HPF Urine RBC (Auto) 3.0 (0.0-6.0) /HPF U Epithel Cells (Auto) 9.0 (0-13.0) /HPF Urine Mucus 3+ /HPF Influenza A (Rapid) Negative (Negative) Influenza B (Rapid) Negative (Negative) Vital Signs 09/18/21 09/18/21 16:46 19:38 Temperature 101.8 F H 98.3 F Pulse Rate 121 H 64 Respiratory 20 17 Rate Blood Pressure 127/88 118/73 [Right] O2 Sat by Pulse 99 97 Oximetry - Radiology Data Radiology results: report reviewed Ordering Physician: CARMEN DALY Date of Service: 09/18/21 Procedure(s): XR chest routine 2V Accession Number(s): [id number] cc: CARMEN DALY Fluoro Time In Minutes: CHEST 2 VIEWS INDICATION: fever, hx of congenital heart defect. COMPARISON: 08/17/2021 FINDINGS: Support devices: None. Heart: Dextrocardia again noted. Lungs/Pleura: No acute air space or interstitial disease. No significant pleural effusion. IMPRESSION: Stable chest. Signer Name: Juan Tolbert MD Signed: 09/18/2021 6:15 PM Workstation Name: [id number] Transcribed By: REYNOLD Dictated By: Juan Tolbert MD Electronically Authenticated By: Juan Tolbert MD Signed Date/Time: 09/18/211814 DD/ 13 TD/TT: - Medical Decision Making Patient is a 26-year-old female presents emergency room complaints of "flulike symptoms" that began yesterday. She has associated generalized body aches, fever, chills, urinary frequency. She denies any cough, shortness of breath, chest pain, abdominal pain, vomiting, diarrhea, sore throat, ear pain. Past medical history of congenital heart defect and dextrocardia. No allergies to medications. Patient states that she was also having some gum bleeding after flossing. Initial vitals with fever and tachycardia which improved to normal upon repeat. Chest x-ray IMPRESSION: Stable chest. Labs are stable. UA shows evidence of dehydration, no signs of UTI. Rapid flu was negative. Patient given Tylenol, IV zofran, and 1 L normal saline with improvement of symptoms. Discussed all findings with patient and answered questions. Advised patient Please take medication as prescribed. Increase your fluid intake over the next several days. Follow-up with a primary care doctor. follow up with a dentist. Recommend outpatient COVID-19 testing and if positive will need to self quarantine for 10 days from onset of symptoms. Return to emergency room for any new or worsening symptoms. Critical care attestation.: If time is entered above; I have spent that time in minutes in the direct care of this critically ill patient, excluding procedure time. ED Disposition Clinical Impression: Gums, bleeding Upper respiratory infection Qualifiers: URI type: unspecified URI Qualified Code(s): J06.9 - Acute upper respiratory infection, unspecified Disposition: HOME / SELF CARE / HOMELESS Is pt being admited?: No Does the pt Need Aspirin: No Condition: Stable Instructions: Viral Respiratory Infection Additional Instructions: Please take medication as prescribed. Increase your fluid intake over the next several days. Follow-up with a primary care doctor. follow up with a dentist. Recommend outpatient COVID-19 testing and if positive will need to self quarantine for 10 days from onset of symptoms. Return to emergency room for any new or worsening symptoms. Prescriptions: Chlorhexidine Mouthwash [Peridex] 15 ml MM BID #1 bottle Acetaminophen [Tylenol] 650 mg PO Q8HR PRN #20 capsule PRN Reason: pain/fever Referrals: PRIMARY CARE,MD [Primary Care Provider] - 2-3 Days [facility] [Outside] - 3-5 Days Forms: Work/School Release Form(ED) Time of Disposition: 18:31 Print Language: OCCITAN
[2021-09-18 19:39] VITALS: BP 118/73
== END 2021-09-18 19:40 | disposition home or self-care (01) ==
LOC: ED 16:38
DX: J06.9 Acute upper respiratory infection, unspecified (principal); F17.290 Nicotine dependence, other tobacco product, uncomplicated; F12.10 Cannabis abuse, uncomplicated; K21.9 Gastro-esophageal reflux disease without esophagitis; K06.8 Other specified disorders of gingiva and edentulous alveolar ridge; Z79.899 Other long term (current) drug therapy
CPT/HCPCS: 36415; 71046; 80053; 81001; 84703; 85025; 85610; 85730; 87400; 96361; 96374; 99284; J2405; J7030; Q0162

== ENCOUNTER 2021-09-21 06:11 | Emergency (ER) | payer SELFPAY ==
[2021-09-21 07:55] LABS: Basophils % (Auto) 0.4 % (0.0-1.8); Eosinophils # (Auto) 0.1 K/mm3 (0.0-0.4); Eosinophils % (Auto) 1.2 % (0.0-4.3); Hematocrit 44.2 % (30.3-42.9); Hemoglobin 14.1 gm/dl (10.1-14.3); Lymphocytes # (Auto) 0.6 K/mm3 (1.2-5.4); Lymphocytes % (Auto) 10.2 % (13.4-35.0); Mean Corpuscular HGB Conc 32 % (30-34); Mean Corpuscular Volume 90 fl (79-97); Monocytes # (Auto) 0.5 K/mm3 (0.0-0.8); Monocytes % (Auto) 9.2 % (0.0-7.3); Platelet Count 163 K/mm3 (140-440); Red Blood Count 4.91 M/mm3 (3.65-5.03); Red Cell Distribution Width 13.8 % (13.2-15.2)
[2021-09-21] MEDS ORDERED: diphenhydrAMINE 50 MG/ML VIAL IV ONE (08:16)
[2021-09-21] MEDS ORDERED: METOCLOPRAMIDE 10 MG/2 ML INJ IV ONE (08:16)
[2021-09-21] MEDS ORDERED: MORPHINE 4 MG/1 ML INJ IV ONE (08:17)
[2021-09-21] MEDS ORDERED: SODIUM CHLORIDE 0.9% 1000 ML 1,000 ML IV ONE (08:17)
[2021-09-21] MEDS ORDERED: FAMOTIDINE 20 MG/2 ML INJ IV ONE (08:18)
[2021-09-21 08:19] LABS: Alanine Aminotransferase 17 units/L (7-56); Albumin 4.1 g/dL (3.9-5); Blood Urea Nitrogen 11 mg/dL (7-17); Hemolysis Index 2
[2021-09-21 08:21] LABS: BUN/Creatinine Ratio 18
--- NOTE | 2021-09-21 08:24 | Emergency Department Report ---
ED General Adult HPI - General Chief complaint: Abdominal Pain Stated complaint: ABD PAIN Time Seen by Provider: 09/21/21 07:53 Source: patient Mode of arrival: Ambulatory Limitations: No Limitations - History of Present Illness Initial comments: 26-year-old -British female patient presents with complaints of continuing body aches, chills, and fatigue now with nausea, vomiting, and right upper quadrant pain. Patient was seen here 09/18/2021 with similar symptoms, however the vomiting and abdominal pain are new per patient. On 09/18/2021, fab sims had a fever and tachycardia upon arrival. She tested negative for the flu and had a normal chest x-ray. She has history of dextrocardia and GERD. She rates her current abdominal pain as a 8/10 in severity. She states she is unable to keep food and fluids down. Patient states since her visit on 09/18/2021, she was tested for COVID-19 and it was negative. She is not vaccinated against COVID-19 or the flu. No hematemesis/coffee-ground emesis, melena/hematochezia, or urinary symptoms per patient. She also denies any cough or shortness of breath. - Related Data Previous Rx's Medication Instructions Recorded Last Taken Type Ibuprofen [Motrin 600 MG tab] 600 mg PO Q8H PRN #15 tablet 08/28/18 Unknown Rx Ibuprofen [Ibuprofen 800] 800 mg PO QID PRN #15 tablet 01/22/19 Unknown Rx Acetaminophen [Acetaminophen TAB] 1,000 mg PO Q6HR PRN #30 tablet 10/21/20 Unknown Rx methOCARBAMOL [Robaxin TAB] 750 mg PO Q8H PRN #30 tablet 10/21/20 Unknown Rx Famotidine [Pepcid] 20 mg PO BID #30 tablet 07/02/21 Unknown Rx Hyoscyamine Subl [Levsin Sl 0.125 0.125 mg SL Q6HR PRN #20 tab 07/02/21 Unknown Rx TAB] Ondansetron [Zofran Odt] 4 mg PO Q8HR PRN #15 tab.rapdis 07/02/21 Unknown Rx Amoxicillin [Amoxicillin TAB] 875 mg PO Q12H #20 tablet 07/25/21 Unknown Rx Cetirizine HCl [Zyrtec 10mg tab] 10 mg PO DAILY #30 tablet 07/25/21 Unknown Rx Ibuprofen [Motrin] 600 mg PO Q8H PRN #30 tablet 07/25/21 Unknown Rx Lidocaine Viscous 2% 10 ml PO Q6H PRN #100 ml 07/25/21 Unknown Rx Ondansetron [Zofran Odt] 4 mg PO Q6HR PRN #15 tab.rapdis 07/25/21 Unknown Rx Albuterol Mdi (or & Nicu Only) 2 puff IH QID PRN #8.5 gram 08/17/21 Unknown Rx [ProAir HFA Inhaler] Ibuprofen [Motrin 600 MG tab] 600 mg PO Q8H PRN #20 tablet 08/17/21 Unknown Rx Acetaminophen [Tylenol] 650 mg PO Q8HR PRN #20 capsule 09/18/21 Unknown Rx Chlorhexidine Mouthwash [Peridex] 15 ml MM BID #1 bottle 09/18/21 Unknown Rx Ondansetron [Zofran Odt] 4 mg PO Q8HR PRN #20 tab.rapdis 09/21/21 Unknown Rx Pantoprazole [Protonix] 40 mg PO QAM 14 Days #14 tablet 09/21/21 Unknown Rx Sucralfate [Carafate] 1 gm PO QID 10 Days #40 tablet 09/21/21 Unknown Rx Allergies Allergy/AdvReac Type Severity Reaction Status Date / Time No Known Allergies Allergy Verified 09/21/21 06:17 ED Review of Systems ROS: Stated complaint: ABD PAIN Other details as noted in HPI Constitutional: chills, malaise, weakness. denies: fever Respiratory: denies: cough, shortness of breath Cardiovascular: denies: chest pain Gastrointestinal: abdominal pain, nausea, vomiting. denies: diarrhea, const ipation, hematemesis, melena, hematochezia Genitourinary: denies: urgency, dysuria, frequency, hematuria Musculoskeletal: denies: back pain Skin: denies: rash, lesions, change in color Neurological: denies: headache Hematological/Lymphatic: denies: easy bleeding, swollen glands ED Past Medical Hx - Past Medical History Hx GERD: Yes Additional medical history: Congenital Heart Disease - Surgical History Additional Surgical History: Congenital Heart Surgery - Social History Smoking Status: Current Some Day Smoker Substance Use Type: Marijuana - Medications Home Medications: Home Medications Medication Instructions Recorded Confirmed Last Taken Type Ibuprofen [Motrin 600 MG tab] 600 mg PO Q8H PRN #15 tablet 08/28/18 Unknown Rx Ibuprofen [Ibuprofen 800] 800 mg PO QID PRN #15 tablet 01/22/19 Unknown Rx Acetaminophen [Acetaminophen TAB] 1,000 mg PO Q6HR PRN #30 tablet 10/21/20 Unknown Rx methOCARBAMOL [Robaxin TAB] 750 mg PO Q8H PRN #30 tablet 10/21/20 Unknown Rx Famotidine [Pepcid] 20 mg PO BID #30 tablet 07/02/21 Unknown Rx Hyoscyamine Subl [Levsin Sl 0.125 0.125 mg SL Q6HR PRN #20 tab 07/02/21 Unknown Rx TAB] Ondansetron [Zofran Odt] 4 mg PO Q8HR PRN #15 tab.rapdis 07/02/21 Unknown Rx Amoxicillin [Amoxicillin TAB] 875 mg PO Q12H #20 tablet 07/25/21 Unknown Rx Cetirizine HCl [Zyrtec 10mg tab] 10 mg PO DAILY #30 tablet 07/25/21 Unknown Rx Ibuprofen [Motrin] 600 mg PO Q8H PRN #30 tablet 07/25/21 Unknown Rx Lidocaine Viscous 2% 10 ml PO Q6H PRN #100 ml 07/25/21 Unknown Rx Ondansetron [Zofran Odt] 4 mg PO Q6HR PRN #15 tab.rapdis 07/25/21 Unknown Rx Albuterol Mdi (or & Nicu Only) 2 puff IH QID PRN #8.5 gram 08/17/21 Unknown Rx [ProAir HFA Inhaler] Ibuprofen [Motrin 600 MG tab] 600 mg PO Q8H PRN #20 tablet 08/17/21 Unknown Rx Acetaminophen [Tylenol] 650 mg PO Q8HR PRN #20 capsule 09/18/21 Unknown Rx Chlorhexidine Mouthwash [Peridex] 15 ml MM BID #1 bottle 09/18/21 Unknown Rx Ondansetron [Zofran Odt] 4 mg PO Q8HR PRN #20 tab.rapdis 09/21/21 Unknown Rx Pantoprazole [Protonix] 40 mg PO QAM 14 Days #14 tablet 09/21/21 Unknown Rx Sucralfate [Carafate] 1 gm PO QID 10 Days #40 tablet 09/21/21 Unknown Rx ED Physical Exam - General Limitations: No Limitations General appearance: alert, in no apparent distress - Head Head exam: Present: atraumatic, normocephalic - Eye Eye exam: Present: normal appearance. Absent: scleral icterus - Neck Neck exam: Present: normal inspection - Respiratory Respiratory exam: Present: normal lung sounds bilaterally. Absent: respiratory distress - Cardiovascular Cardiovascular Exam: Present: regular rate, normal rhythm - GI/Abdominal GI/Abdominal exam: Present: soft, tenderness (Epigastric and right upper quadrant tenderness to palpation noted), normal bowel sounds. Absent: rigid - Neurological Exam Neurological exam: Present: alert, oriented X3, normal gait - Psychiatric Psychiatric exam: Present: normal affect, normal mood - Skin Skin exam: Present: warm, dry, intact, normal color. Absent: rash ED Course Vital Signs 09/21/21 09/21/21 06:13 09:04 Temperature 97.9 F Pulse Rate 95 H Respiratory 17 16 Rate Blood Pressure 141/81 [Right] O2 Sat by Pulse 98 Oximetry ED Medical Decision Making - Lab Data Result diagrams: 09/21/21 07:38 09/21/21 07:38 Lab Results 09/21/21 09/21/21 09/21/21 Range/Units 07:38 07:38 07:38 WBC 5.7 (4.5-11.0) K/mm3 RBC 4.91 (3.65-5.03) M/mm3 Hgb 14.1 (10.1-14.3) gm/dl Hct 44.2 H (30.3-42.9) % MCV 90 (79-97) fl MCH 29 (28-32) pg MCHC 32 (30-34) % RDW 13.8 (13.2-15.2) % Plt Count 163 (140-440) K/mm3 Lymph % (Auto) 10.2 L (13.4-35.0) % Mitchell % (Auto) 9.2 H (0.0-7.3) % Eos % (Auto) 1.2 (0.0-4.3) % Baso % (Auto) 0.4 (0.0-1.8) % Lymph # (Auto) 0.6 L (1.2-5.4) K/mm3 Mitchell # (Auto) 0.5 (0.0-0.8) K/mm3 Eos # (Auto) 0.1 (0.0-0.4) K/mm3 Baso # (Auto) 0.0 (0.0-0.1) K/mm3 Seg Neutrophils % 79.0 H (40.0-70.0) % Seg Neutrophils # 4.5 (1.8-7.7) K/mm3 Sodium 138 (137-145) mmol/L Potassium 3.5 L (3.6-5.0) mmol/L Chloride 101.8 (98-107) mmol/L Carbon Dioxide 19 L (22-30) mmol/L Anion Gap 21 mmol/L BUN 11 (7-17) mg/dL Creatinine 0.6 (0.6-1.2) mg/dL Estimated GFR > 60 ml/min BUN/Creatinine Ratio 18 % Glucose 118 H (65-100) mg/dL Calcium 9.0 (8.4-10.2) mg/dL Total Bilirubin 0.70 (0.1-1.2) mg/dL AST 16 (5-40) units/L ALT 17 (7-56) units/L Alkaline Phosphatase 108 (35-129) units/L Total Protein 7.5 (6.3-8.2) g/dL Albumin 4.1 (3.9-5) g/dL Albumin/Globulin Ratio 1.2 % Lipase 10 L (13-60) units/L HCG, Quant < 2 (0-4) mIU/mL - Radiology Data Radiology results: report reviewed ULTRASOUND ABDOMEN, LIMITED (RIGHT UPPER QUADRANT) INDICATION: RUQ pain. COMPARISON: None available. FINDINGS: Pancreas: Visualized portion shows no significant abnormality. Liver: Mild increased echogenicity diffusely. Gallbladder: Normal. Bile ducts: Normal. Common Bile Duct measures 3.3 mm. Free fluid: None. Additional Findings: None. IMPRESSION: 1. Mild fatty liver. 2. Negative for gallstones or biliary dilatation. - Medical Decision Making 26-year-old -[place] female patient presents with complaints of continuing body aches, chills, and fatigue now with nausea, vomiting, and right upper quadrant pain. Patient was seen here 09/18/2021 with similar symptoms, however the vomiting and abdominal pain are new per patient. On 09/18/2021, patient had a fever and tachycardia upon arrival. She tested negative for the flu and had a normal chest x-ray. She has history of dextrocardia and GERD. She rates her current abdominal pain as a 8/10 in severity. She states she is unable to keep food and fluids down. Patient states since her visit on 09/18/2021, she was tested for COVID-19 and it was negative. She is not vaccinated against COVID-19 or the flu. No hematemesis/coffee-ground emesis, melena/hematochezia, or urinary symptoms per patient. She also denies any cough or shortness of breath. Right upper quadrant ultrasound is negative for any acute abnormalities. Given significance of tenderness of right upper quadrant on exam, CT abdomen was performed and is negative for any acute intra-abdominal abnormalities. No abnormalities seen at the right lung base on CT. Vitals are within normal limits and patient is afebrile nontachycardic. Symptoms improved with meds given here in the ED. Recommend patient follows up with GI specialist for further evaluation for possible PUD within 3 days. She is nontoxic-appearing and stable for discharge home. Discussed presumptive diagnosis, care plan, and signs symptoms that should prompt immediate return to the ED with patient who verbalizes understanding. Critical care attestation.: If time is entered above; I have spent that time in minutes in the direct care of this critically ill patient, excluding procedure time. ED Disposition Clinical Impression: Upper abdominal pain, Nausea & vomiting Disposition: 01 HOME / SELF CARE / HOMELESS Is pt being admited?: No Condition: Stable Instructions: Abdominal Pain (ED), Abdominal Pain, Adult, [id number], Gastritis, Adult, [id number] Prescriptions: Sucralfate [Carafate] 1 gm PO QID 10 Days #40 tablet Pantoprazole [Protonix] 40 mg PO QAM 14 Days #14 tablet Ondansetron [Zofran Odt] 4 mg PO Q8HR PRN #20 tab.rapdis PRN Reason: Nausea Referrals: PRIMARY CARE, [Primary Care Provider] - 3-5 Days [facility] [Provider Group] - 2-3 Days Forms: Work/School Release Form(ED)
[2021-09-21] MEDS ORDERED: MORPHINE 2 MG/1 ML INJ IV ONE (08:56)
[2021-09-21] MEDS ORDERED: MORPHINE 2 MG/1 ML INJ IV STA (08:56)
--- NOTE | 2021-09-21 10:24 | Ultrasound Report ---
ULTRASOUND ABDOMEN, LIMITED (RIGHT UPPER QUADRANT) INDICATION: RUQ pain. COMPARISON: None available. FINDINGS: Pancreas: Visualized portion shows no significant abnormality. Liver: Mild increased echogenicity diffusely. Gallbladder: Normal. Bile ducts: Normal. Common Bile Duct measures 3.3 mm. Free fluid: None. Additional Findings: None. IMPRESSION: 1. Mild fatty liver. 2. Negative for gallstones or biliary dilatation. Signer Name: Juan Tolbert MD Signed: 09/21/2021 10:19 AM Workstation Name: [id number]
--- NOTE | 2021-09-21 11:38 | Cat Scan Report ---
CT abdomen pelvis w con INDICATION: upper abd pain, worse on R OMNI 300 100 ML. COMPARISON: None TECHNIQUE: Abdominal and pelvic CT exam performed. All CT scans at this location are performed using CT dose reduction for ALARA by means of automated exposure control. FINDINGS: CT ABDOMEN and PELVIS: Lung Bases: Dextrocardia. Liver: No significant abnormality. Biliary: No significant abnormality. Spleen: No significant abnormality. Pancreas: No significant abnormality. Adrenals: No significant abnormality. Kidneys: No significant abnormality. Contrast is seen within the collecting system. Lymphatics: No lymphadenopathy. Vasculature: No significant abnormality. Bowel: No significant abnormality. Normal appendix. Pelvis: Right ovarian cysts, common benign finding. Osseous Structures: No aggressive osseous lesion. Additional Findings: None IMPRESSION: 1. No significant abnormality of the abdomen or pelvis. Signer Name: Shin Velez MD Signed: 09/21/2021 11:34 AM Workstation Name: [id number]
[2021-09-21] MEDS ORDERED: POTASSIUM CHLORIDE ER 20 MEQ TAB PO ONE (11:43)
[2021-09-21 13:07] LABS: Bilirubin,Urine NEG (Negative); Blood,Urine NEG (Negative); Color,Urine Yellow (Yellow); Mucus,Urine FEW /HPF; Protein,Urine <15 mg/dL mg/dL (Negative); Urobilinogen,Urine < 2.0 mg/dL (<2.0)
[2021-09-21 13:45] VITALS: BP 129/87
== END 2021-09-21 13:44 | disposition home or self-care (01) ==
LOC: ED 06:11
DX: R10.11 Right upper quadrant pain (principal); R10.13 Epigastric pain; R11.2 Nausea with vomiting, unspecified; R53.83 Other fatigue; K21.9 Gastro-esophageal reflux disease without esophagitis; I25.10 Atherosclerotic heart disease of native coronary artery without angina pectoris; F17.290 Nicotine dependence, other tobacco product, uncomplicated; Z79.899 Other long term (current) drug therapy
CPT/HCPCS: 36415; 74177; 76705; 80053; 81001; 83690; 84702; 85025; 96361; 96374; 96375; 99284; J1200; J2270; J2765; J3490; J7030; Q9967; Q0162

== ENCOUNTER 2022-02-27 09:43 | Emergency (ER) | payer SELFPAY ==
[2022-02-27 10:16] VITALS: BP 107/84
--- NOTE | 2022-02-28 12:18 | Electrocardiograph Report ---
Test Date: 2022-02-27 Test Time: 10:19:39 Pat Name: HARDIK CASTILLO Department: Room: Gender: F [employer] Operations Compliance Manager: AF : 1995 Requested By: ED DOC Order Number: [id number] Reading MD: Juan Osei Measurements Intervals [place] Rate: 78 P: 79 NE: 177 QRS: 89 QRSD: 90 T: 199 QT: 375 QTc: 428 Interpretive Statements Sinus rhythm Nonspecific T abnormalities, diffuse leads Compared to ECG 08/17/2021 10:50:21 T-wave abnormality now present Electronically Signed On 02-28-2022 12:17:42 EDT by Juan Osei
== END 2022-02-28 07:00 | disposition left against medical advice (07) ==
LOC: ED 09:43
DX: R53.1 Weakness (principal); Z53.21 Procedure and treatment not carried out due to patient leaving prior to being seen by health care provider
CPT/HCPCS: 93005

== ENCOUNTER 2022-03-19 23:20 | Emergency (ER) | payer SELFPAY ==
[2022-03-20] MEDS ORDERED: ACETAMINOPHEN 500 MG TAB PO ONE (04:29)
--- NOTE | 2022-03-20 05:11 | Emergency Department Report ---
- General Chief Complaint: Fever Stated Complaint: FLU SYSTEM Source: patient Mode of arrival: Ambulatory Limitations: No Limitations - History of Present Illness Initial Comments: Patient is a nulliparous 27-year-old -[place] female with no past medical history except GERD who presents to the ED with complaint of acute onset persistent diffuse body aches and pains, frontal sinus headache, nasal and sinus congestion, mild dry cough and lack of appetite with generalized weakness and fatigue for the last 2 days. Patient states that the symptoms have been persistent and appear to be worsening in the last 8 hours. Patient denies dizziness, syncope, abdominal pain, nausea and vomiting or diarrhea, dysuria, urinary frequency and urgency or palpitations. MD Complaint: fever, cough, rhinorrhea, nasal congestion, sinus pain, other (Diffuse body aches and pains) -: Sudden, days(s) (2) Severity: moderate Severity scale (0 -10): 5 Quality: dull, aching Consistency: constant Improves With: nothing Worsens With: nothing Context: sick contacts Associated Symptoms: denies other symptoms, fever, chills, myalgias, headache, rhinorrhea, nasal congestion, cough. denies: diaphoresis, sore throat, stiff neck, chest pain, shortness of breath, abdominal pain, nausea, vomiting, diarrhea, dysuria, rash, confusion, right sweats, weight loss, epistaxis, hoarseness, ear pain, other Treatments Prior to Arrival: none - Related Data Previous Rx's Medication Instructions Recorded Last Taken Type Ibuprofen [Motrin 600 MG tab] 600 mg PO Q8H PRN #15 tablet 08/28/18 Unknown Rx Ibuprofen [Ibuprofen 800] 800 mg PO QID PRN #15 tablet 01/22/19 Unknown Rx Acetaminophen [Acetaminophen TAB] 1,000 mg PO Q6HR PRN #30 tablet 10/21/20 Unknown Rx methOCARBAMOL [Robaxin TAB] 750 mg PO Q8H PRN #30 tablet 10/21/20 Unknown Rx Famotidine [Pepcid] 20 mg PO BID #30 tablet 07/02/21 Unknown Rx Hyoscyamine Subl [Levsin Sl 0.125 0.125 mg SL Q6HR PRN #20 tab 07/02/21 Unknown Rx TAB] Amoxicillin [Amoxicillin TAB] 875 mg PO Q12H #20 tablet 07/25/21 Unknown Rx Cetirizine HCl [Zyrtec 10mg tab] 10 mg PO DAILY #30 tablet 07/25/21 Unknown Rx Ibuprofen [Motrin] 600 mg PO Q8H PRN #30 tablet 07/25/21 Unknown Rx Lidocaine Viscous 2% 10 ml PO Q6H PRN #100 ml 07/25/21 Unknown Rx Ondansetron [Zofran Odt] 4 mg PO Q6HR PRN #15 tab.rapdis 07/25/21 Unknown Rx Albuterol Mdi (or & Nicu Only) 2 puff IH QID PRN #8.5 gram 08/17/21 Unknown Rx [ProAir HFA Inhaler] Ibuprofen [Motrin 600 MG tab] 600 mg PO Q8H PRN #20 tablet 08/17/21 Unknown Rx Acetaminophen [Tylenol] 650 mg PO Q8HR PRN #20 capsule 09/18/21 Unknown Rx Chlorhexidine Mouthwash [Peridex] 15 ml MM BID #1 bottle 09/18/21 Unknown Rx Ondansetron [Zofran Odt] 4 mg PO Q8HR PRN #20 tab.rapdis 09/21/21 Unknown Rx Pantoprazole [Protonix] 40 mg PO QAM 14 Days #14 tablet 09/21/21 Unknown Rx Sucralfate [Carafate] 1 gm PO QID 10 Days #40 tablet 09/21/21 Unknown Rx Azithromycin [Zithromax Z-ELLIOT] 250 mg PO DAILY #6 tab 03/20/22 Unknown Rx Cetirizine HCl [Zyrtec 10mg tab] 10 mg PO DAILY #30 tab 03/20/22 Unknown Rx Ibuprofen [Motrin] 600 mg PO Q8H PRN #30 tablet 03/20/22 Unknown Rx Ondansetron [Zofran ODT TAB] 4 mg PO Q8HR PRN #15 tab.rapdis 03/20/22 Unknown Rx Allergies Allergy/AdvReac Type Severity Reaction Status Date / Time No Known Allergies Allergy Verified 09/21/21 06:17 ED Review of Systems ROS: Stated complaint: FLU SYSTEM Other details as noted in HPI Constitutional: chills, fever, malaise Eyes: denies: eye pain, eye discharge, vision change ENT: congestion, other (Frontal sinus pressure). denies: ear pain, throat pain Respiratory: cough. denies: shortness of breath, wheezing Cardiovascular: denies: chest pain, palpitations Endocrine: no symptoms reported Gastrointestinal: denies: abdominal pain, nausea, vomiting, diarrhea Genitourinary: denies: urgency, dysuria, discharge Musculoskeletal: arthralgia, myalgia. denies: back pain, joint swelling Skin: denies: rash, lesions Neurological: headache. denies: weakness, paresthesias Psychiatric: denies: anxiety, depression Hematological/Lymphatic: denies: easy bleeding, easy bruising ED Past Medical Hx - Past Medical History Hx GERD: Yes Additional medical history: Congenital Heart Disease - Surgical History Additional Surgical History: Congenital Heart Surgery - Social History Smoking Status: Current Some Day Smoker Substance Use Type: Marijuana - Medications Home Medications: Home Medications Medication Instructions Recorded Confirmed Last Taken Type Ibuprofen [Motrin 600 MG tab] 600 mg PO Q8H PRN #15 tablet 08/28/18 Unknown Rx Ibuprofen [Ibuprofen 800] 800 mg PO QID PRN #15 tablet 01/22/19 Unknown Rx Acetaminophen [Acetaminophen TAB] 1,000 mg PO Q6HR PRN #30 tablet 10/21/20 Unknown Rx methOCARBAMOL [Robaxin TAB] 750 mg PO Q8H PRN #30 tablet 10/21/20 Unknown Rx Famotidine [Pepcid] 20 mg PO BID #30 tablet 07/02/21 Unknown Rx Hyoscyamine Subl [Levsin Sl 0.125 0.125 mg SL Q6HR PRN #20 tab 07/02/21 Unknown Rx TAB] Amoxicillin [Amoxicillin TAB] 875 mg PO Q12H #20 tablet 07/25/21 Unknown Rx Cetirizine HCl [Zyrtec 10mg tab] 10 mg PO DAILY #30 tablet 07/25/21 Unknown Rx Ibuprofen [Motrin] 600 mg PO Q8H PRN #30 tablet 07/25/21 Unknown Rx Lidocaine Viscous 2% 10 ml PO Q6H PRN #100 ml 07/25/21 Unknown Rx Ondansetron [Zofran Odt] 4 mg PO Q6HR PRN #15 tab.rapdis 07/25/21 Unknown Rx Albuterol Mdi (or & Nicu Only) 2 puff IH QID PRN #8.5 gram 08/17/21 Unknown Rx [ProAir HFA Inhaler] Ibuprofen [Motrin 600 MG tab] 600 mg PO Q8H PRN #20 tablet 08/17/21 Unknown Rx Acetaminophen [Tylenol] 650 mg PO Q8HR PRN #20 capsule 09/18/21 Unknown Rx Chlorhexidine Mouthwash [Peridex] 15 ml MM BID #1 bottle 09/18/21 Unknown Rx Ondansetron [Zofran Odt] 4 mg PO Q8HR PRN #20 tab.rapdis 09/21/21 Unknown Rx Pantoprazole [Protonix] 40 mg PO QAM 14 Days #14 tablet 09/21/21 Unknown Rx Sucralfate [Carafate] 1 gm PO QID 10 Days #40 tablet 09/21/21 Unknown Rx Azithromycin [Zithromax Z-ELLIOT] 250 mg PO DAILY #6 tab 03/20/22 Unknown Rx Cetirizine HCl [Zyrtec 10mg tab] 10 mg PO DAILY #30 tab 03/20/22 Unknown Rx Ibuprofen [Motrin] 600 mg PO Q8H PRN #30 tablet 03/20/22 Unknown Rx Ondansetron [Zofran ODT TAB] 4 mg PO Q8HR PRN #15 tab.rapdis 03/20/22 Unknown Rx ED Physical Exam - General Limitations: No Limitations General appearance: alert, in no apparent distress - Head Head exam: Present: atraumatic, normocephalic, normal inspection - Eye Eye exam: Present: normal appearance, PERRL, EOMI Pupils: Present: normal accommodation - ENT ENT exam: Present: normal orophraynx, mucous membranes moist, TM's normal bilaterally, normal external ear exam, other (Grossly congested nasal passages; palpable frontal sinus tenderness) - Neck Neck exam: Present: normal inspection, full ROM. Absent: tenderness - Respiratory Respiratory exam: Present: normal lung sounds bilaterally. Absent: respiratory distress, wheezes, rales, chest wall tenderness, decreased breath sounds, prolonged expiratory - Cardiovascular Cardiovascular Exam: Present: regular rate, normal rhythm, normal heart sounds. Absent: systolic murmur, diastolic murmur, rubs, gallop - GI/Abdominal GI/Abdominal exam: Present: soft, normal bowel sounds. Absent: tenderness, guarding, rebound, hyperactive bowel sounds, hypoactive bowel sounds, mass, bruit - Extremities Exam Extremities exam: Present: normal inspection, full ROM, normal capillary refill. Absent: tenderness - Back Exam Back exam: Present: normal inspection, full ROM. Absent: tenderness, CVA tenderness (R), CVA tenderness (L), muscle spasm, paraspinal tenderness, vertebral tenderness - Neurological Exam Neurological exam: Present: alert, oriented X3, CN II-XII intact, normal gait, reflexes normal - Psychiatric Psychiatric exam: Present: normal affect, normal mood - Skin Skin exam: Present: warm, dry, intact, normal color. Absent: rash ED Course Vital Signs 03/20/22 02:09 Temperature 98.0 F Pulse Rate 89 Respiratory 18 Rate Blood Pressure 129/97 O2 Sat by Pulse 93 Oximetry ED Medical Decision Making - Medical Decision Making This is a nulliparous 27-year-old -[place] female with no past medical history except GERD who presents to the ED with complaint of acute onset persistent diffuse body aches and pains, frontal sinus headache, nasal and sinus congestion, mild dry cough and lack of appetite with generalized weakness and fatigue for the last 2 days. Patient states that the symptoms have been persistent and appear to be worsening in the last 8 hours. In the ED, patient is alert and oriented x3 and is not in any distress. Patient is hemodynamically stable. Patient was treated for pain in the ED. - Differential Diagnosis URI; UTI; bronchitis; sinusitis; influenza; COVID-19 Critical care attestation.: If time is entered above; I have spent that time in minutes in the direct care of this critically ill patient, excluding procedure time. ED Disposition Clinical Impression: Acute upper respiratory infection Acute frontal sinusitis, unspecified Qualifiers: Recurrence: non-recurrent Qualified Code(s): J01.10 - Acute frontal sinusitis, unspecified Disposition: 01 HOME / SELF CARE / HOMELESS Is pt being admited?: No Does the pt Need Aspirin: No Condition: Stable Instructions: Sinusitis, Adult, [id number], Upper Respiratory Infection, Adult, [id number] Additional Instructions: Urinalysis is unremarkable. Your symptoms are likely due to upper respiratory infection and sinusitis. Therefore take medications with food, drink plenty of fluids and follow-up with your primary care physician in 5 to 7 days for reevaluation. Return to the ED immediately if symptoms get worse. Prescriptions: Ibuprofen [Motrin] 600 mg PO Q8H PRN #30 tablet PRN Reason: Pain Azithromycin [Zithromax Z-ELLIOT] 250 mg PO DAILY #6 tab Ondansetron [Zofran ODT TAB] 4 mg PO Q8HR PRN #15 tab.rapdis PRN Reason: Nausea vomiting Cetirizine HCl [Zyrtec 10mg tab] 10 mg PO DAILY #30 tab Referrals: [facility] [Provider Group] - 7-10 days Forms: Work/School Release Form(ED) Time of Disposition: 05:34 Print Language: HUNGARIAN
[2022-03-20 05:21] LABS: Bilirubin,Urine NEG (Negative); Blood,Urine NEG (Negative); Color,Urine Amber (Yellow); Mucus,Urine 2+ /HPF; WBC,Urine < 1.0 /HPF (0.0-6.0)
[2022-03-20 05:22] LABS: HCG Qualitative,Urine Negative (Negative)
[2022-03-20 07:01] VITALS: BP 127/85
== END 2022-03-20 06:15 | disposition home or self-care (01) ==
LOC: ED 23:20
DX: J06.9 Acute upper respiratory infection, unspecified (principal); J01.10 Acute frontal sinusitis, unspecified; K21.9 Gastro-esophageal reflux disease without esophagitis; Z79.899 Other long term (current) drug therapy; F17.200 Nicotine dependence, unspecified, uncomplicated
CPT/HCPCS: 81001; 81025; 99283

== ENCOUNTER 2022-07-10 15:24 | Emergency (ER) | payer SELFPAY ==
[2022-07-10 19:26] VITALS: BP 116/80
[2022-07-10] MEDS ORDERED: PENICILLIN G BENZATHINE 1.2 MILLION UNIT/2 ML INJ IM STA (21:04)
[2022-07-10] MEDS ORDERED: dexAMETHasone 4 MG/ML VIAL PO ONE (21:04)
--- NOTE | 2022-07-10 22:19 | Emergency Department Report ---
ED ENT HPI - General Chief complaint: Sore Throat Stated complaint: SORE THROAT, VOMTING,TIGHT CHEST, Time Seen by Provider: 07/10/22 21:03 Source: patient Mode of arrival: Ambulatory Limitations: No Limitations - History of Present Illness Initial comments: 27-year-old female Jordi emerged department complaining of a few day history of odynophagia which is worse with eating and drinking. Some fever sensation but no nausea vomiting, no diarrhea, no chest pain, no palpitations MD complaint: sore throat -: Gradual, Sudden Location: throat Severity: mild, moderate Quality: dull Consistency: constant Improves with: none, pressure Worsens with: none - Related Data Previous Rx's Medication Instructions Recorded Last Taken Type Ibuprofen [Motrin 600 MG tab] 600 mg PO Q8H PRN #15 tablet 08/28/18 Unknown Rx Ibuprofen [Ibuprofen 800] 800 mg PO QID PRN #15 tablet 01/22/19 Unknown Rx Acetaminophen [Acetaminophen TAB] 1,000 mg PO Q6HR PRN #30 tablet 10/21/20 Unknown Rx methOCARBAMOL [Robaxin TAB] 750 mg PO Q8H PRN #30 tablet 10/21/20 Unknown Rx Famotidine [Pepcid] 20 mg PO BID #30 tablet 07/02/21 Unknown Rx Hyoscyamine Subl [Levsin Sl 0.125 0.125 mg SL Q6HR PRN #20 tab 07/02/21 Unknown Rx TAB] Amoxicillin [Amoxicillin TAB] 875 mg PO Q12H #20 tablet 07/25/21 Unknown Rx Cetirizine HCl [Zyrtec 10mg tab] 10 mg PO DAILY #30 tablet 07/25/21 Unknown Rx Ibuprofen [Motrin] 600 mg PO Q8H PRN #30 tablet 07/25/21 Unknown Rx Lidocaine Viscous 2% 10 ml PO Q6H PRN #100 ml 07/25/21 Unknown Rx Ondansetron [Zofran Odt] 4 mg PO Q6HR PRN #15 tab.rapdis 07/25/21 Unknown Rx Albuterol Mdi (or & Nicu Only) 2 puff IH QID PRN #8.5 gram 08/17/21 Unknown Rx [ProAir HFA Inhaler] Ibuprofen [Motrin 600 MG tab] 600 mg PO Q8H PRN #20 tablet 08/17/21 Unknown Rx Acetaminophen [Tylenol] 650 mg PO Q8HR PRN #20 capsule 09/18/21 Unknown Rx Ondansetron [Zofran Odt] 4 mg PO Q8HR PRN #20 tab.rapdis 09/21/21 Unknown Rx Pantoprazole [Protonix] 40 mg PO QAM 14 Days #14 tablet 09/21/21 Unknown Rx Sucralfate [Carafate] 1 gm PO QID 10 Days #40 tablet 09/21/21 Unknown Rx Azithromycin [Zithromax Z-ELLIOT] 250 mg PO DAILY #6 tab 03/20/22 Unknown Rx Cetirizine HCl [Zyrtec 10mg tab] 10 mg PO DAILY #30 tab 03/20/22 Unknown Rx Ibuprofen [Motrin] 600 mg PO Q8H PRN #30 tablet 03/20/22 Unknown Rx Ondansetron [Zofran ODT TAB] 4 mg PO Q8HR PRN #15 tab.rapdis 03/20/22 Unknown Rx Chlorhexidine Mouthwash [Peridex] 15 ml MM BID #1 bottle 07/10/22 Unknown Rx Allergies Allergy/AdvReac Type Severity Reaction Status Date / Time No Known Allergies Allergy Verified 09/21/21 06:17 ED Dental HPI - General Chief complaint: Sore Throat Stated complaint: SORE THROAT, VOMTING,TIGHT CHEST, Time Seen by Provider: 07/10/22 21:03 Source: patient Mode of arrival: Ambulatory Limitations: No Limitations - Related Data Previous Rx's Medication Instructions Recorded Last Taken Type Ibuprofen [Motrin 600 MG tab] 600 mg PO Q8H PRN #15 tablet 08/28/18 Unknown Rx Ibuprofen [Ibuprofen 800] 800 mg PO QID PRN #15 tablet 01/22/19 Unknown Rx Acetaminophen [Acetaminophen TAB] 1,000 mg PO Q6HR PRN #30 tablet 10/21/20 Unknown Rx methOCARBAMOL [Robaxin TAB] 750 mg PO Q8H PRN #30 tablet 10/21/20 Unknown Rx Famotidine [Pepcid] 20 mg PO BID #30 tablet 07/02/21 Unknown Rx Hyoscyamine Subl [Levsin Sl 0.125 0.125 mg SL Q6HR PRN #20 tab 07/02/21 Unknown Rx TAB] Amoxicillin [Amoxicillin TAB] 875 mg PO Q12H #20 tablet 07/25/21 Unknown Rx Cetirizine HCl [Zyrtec 10mg tab] 10 mg PO DAILY #30 tablet 07/25/21 Unknown Rx Ibuprofen [Motrin] 600 mg PO Q8H PRN #30 tablet 07/25/21 Unknown Rx Lidocaine Viscous 2% 10 ml PO Q6H PRN #100 ml 07/25/21 Unknown Rx Ondansetron [Zofran Odt] 4 mg PO Q6HR PRN #15 tab.rapdis 07/25/21 Unknown Rx Albuterol Mdi (or & Nicu Only) 2 puff IH QID PRN #8.5 gram 08/17/21 Unknown Rx [ProAir HFA Inhaler] Ibuprofen [Motrin 600 MG tab] 600 mg PO Q8H PRN #20 tablet 08/17/21 Unknown Rx Acetaminophen [Tylenol] 650 mg PO Q8HR PRN #20 capsule 09/18/21 Unknown Rx Ondansetron [Zofran Odt] 4 mg PO Q8HR PRN #20 tab.rapdis 09/21/21 Unknown Rx Pantoprazole [Protonix] 40 mg PO QAM 14 Days #14 tablet 09/21/21 Unknown Rx Sucralfate [Carafate] 1 gm PO QID 10 Days #40 tablet 09/21/21 Unknown Rx Azithromycin [Zithromax Z-ELLIOT] 250 mg PO DAILY #6 tab 03/20/22 Unknown Rx Cetirizine HCl [Zyrtec 10mg tab] 10 mg PO DAILY #30 tab 03/20/22 Unknown Rx Ibuprofen [Motrin] 600 mg PO Q8H PRN #30 tablet 03/20/22 Unknown Rx Ondansetron [Zofran ODT TAB] 4 mg PO Q8HR PRN #15 tab.rapdis 03/20/22 Unknown Rx Chlorhexidine Mouthwash [Peridex] 15 ml MM BID #1 bottle 07/10/22 Unknown Rx Allergies Allergy/AdvReac Type Severity Reaction Status Date / Time No Known Allergies Allergy Verified 09/21/21 06:17 ED Review of Systems ROS: Stated complaint: SORE THROAT, VOMTING,TIGHT CHEST, Other details as noted in HPI Comment: All other systems reviewed and negative ED Past Medical Hx - Past Medical History Previous Medical History?: Yes Hx GERD: Yes Additional medical history: Congenital Heart Disease - Surgical History Past Surgical History?: Yes Additional Surgical History: Congenital Heart Surgery - Social History Smoking Status: Unknown if ever smoked Substance Use Type: None - Medications Home Medications: Home Medications Medication Instructions Recorded Confirmed Last Taken Type Ibuprofen [Motrin 600 MG tab] 600 mg PO Q8H PRN #15 tablet 08/28/18 Unknown Rx Ibuprofen [Ibuprofen 800] 800 mg PO QID PRN #15 tablet 01/22/19 Unknown Rx Acetaminophen [Acetaminophen TAB] 1,000 mg PO Q6HR PRN #30 tablet 10/21/20 Unknown Rx methOCARBAMOL [Robaxin TAB] 750 mg PO Q8H PRN #30 tablet 10/21/20 Unknown Rx Famotidine [Pepcid] 20 mg PO BID #30 tablet 07/02/21 Unknown Rx Hyoscyamine Subl [Levsin Sl 0.125 0.125 mg SL Q6HR PRN #20 tab 07/02/21 Unknown Rx TAB] Amoxicillin [Amoxicillin TAB] 875 mg PO Q12H #20 tablet 07/25/21 Unknown Rx Cetirizine HCl [Zyrtec 10mg tab] 10 mg PO DAILY #30 tablet 07/25/21 Unknown Rx Ibuprofen [Motrin] 600 mg PO Q8H PRN #30 tablet 07/25/21 Unknown Rx Lidocaine Viscous 2% 10 ml PO Q6H PRN #100 ml 07/25/21 Unknown Rx Ondansetron [Zofran Odt] 4 mg PO Q6HR PRN #15 tab.rapdis 07/25/21 Unknown Rx Albuterol Mdi (or & Nicu Only) 2 puff IH QID PRN #8.5 gram 08/17/21 Unknown Rx [ProAir HFA Inhaler] Ibuprofen [Motrin 600 MG tab] 600 mg PO Q8H PRN #20 tablet 08/17/21 Unknown Rx Acetaminophen [Tylenol] 650 mg PO Q8HR PRN #20 capsule 09/18/21 Unknown Rx Ondansetron [Zofran Odt] 4 mg PO Q8HR PRN #20 tab.rapdis 09/21/21 Unknown Rx Pantoprazole [Protonix] 40 mg PO QAM 14 Days #14 tablet 09/21/21 Unknown Rx Sucralfate [Carafate] 1 gm PO QID 10 Days #40 tablet 09/21/21 Unknown Rx Azithromycin [Zithromax Z-ELLIOT] 250 mg PO DAILY #6 tab 06/06/22 Unknown Rx Cetirizine HCl [Zyrtec 10mg tab] 10 mg PO DAILY #30 tab 03/20/22 Unknown Rx Ibuprofen [Motrin] 600 mg PO Q8H PRN #30 tablet 03/20/22 Unknown Rx Ondansetron [Zofran ODT TAB] 4 mg PO Q8HR PRN #15 tab.rapdis 03/20/22 Unknown Rx Chlorhexidine Mouthwash [Peridex] 15 ml MM BID #1 bottle 07/10/22 Unknown Rx ED Physical Exam - General Limitations: No Limitations General appearance: alert, in no apparent distress - Head Head exam: Present: atraumatic, normocephalic - Eye Eye exam: Present: normal appearance, PERRL Pupils: Present: normal accommodation - ENT ENT exam: Present: mucous membranes moist, other (Swollen tonsils with exudate noted. Normal voice no drooling. No epistaxis. Chest is clear) - Neck Neck exam: Present: normal inspection - Respiratory Respiratory exam: Present: normal lung sounds bilaterally. Absent: respiratory distress - Cardiovascular Cardiovascular Exam: Present: regular rate, normal rhythm. Absent: systolic murmur, diastolic murmur, rubs, gallop - GI/Abdominal GI/Abdominal exam: Present: soft, normal bowel sounds - Extremities Exam Extremities exam: Present: normal inspection - Back Exam Back exam: Present: normal inspection - Neurological Exam Neurological exam: Present: alert, oriented X3 - Psychiatric Psychiatric exam: Present: normal affect, normal mood - Skin Skin exam: Present: warm, dry, intact, normal color. Absent: rash ED Course Vital Signs 07/10/22 19:26 Temperature 99.0 F Pulse Rate 103 H Respiratory 18 Rate Blood Pressure 116/80 O2 Sat by Pulse 96 Oximetry Critical care attestation.: If time is entered above; I have spent that time in minutes in the direct care of this critically ill patient, excluding procedure time. ED Disposition Clinical Impression: Exudative pharyngitis Disposition: HOME / SELF CARE / HOMELESS Is pt being admited?: No Does the pt Need Aspirin: No Condition: Good Instructions: Pharyngitis, Strep Throat, Adult, Sore Throat, [id number] Prescriptions: Chlorhexidine Mouthwash [Peridex] 15 ml MM BID #1 bottle Referrals: PRIMARY CARE, [Primary Care Provider] - 3-5 Days
== END 2022-07-10 23:30 | disposition home or self-care (01) ==
LOC: ED 15:24
DX: J02.9 Acute pharyngitis, unspecified (principal); K21.9 Gastro-esophageal reflux disease without esophagitis
CPT/HCPCS: 96372; 99282; J0561; J1100